=== PATIENT | female | born 1940 | race Caucasian/White ===

== ENCOUNTER 2019-02-09 07:13 | Inpatient (IN) ==
--- NOTE | 2019-01-18 15:32 | PAT Medication Instructions ---
Medication Instructions Date of Service January 18, 2019 Home Medications Metamucil 3 tbsp PO QAM acetaminophen [Tylenol Extra 1,000 mg PO BID PRN amlodipine 5 mg PO QAM aspirin [Aspirin Low Dose] 81 mg PO HS atenolol 50 mg PO HS atorvastatin 20 mg PO HS cetirizine [Zyrtec] 10 mg PO HS cholecalciferol (vitamin D3) 1,000 unit PO QAM coenzyme Q10 10 mg PO QAM esomeprazole magnesium [Nexium] 40 mg PO QAM fluticasone propionate 1 spray INTRANASAL BID hydroxychloroquine [Plaquenil] 400 mg PO QPM lactase [Lactaid] 3,000 unit PO DAILY PRN meloxicam 15 mg PO HS montelukast 10 mg PO QPM ranitidine HCl 150 mg PO HS telmisartan [Micardis] 80 mg PO QDL zolpidem [Ambien] 2.5 mg PO HS PRN [PreserVision AREDS-2]vit C,Y-Gx-wdayq-lutein-zeaxan 1 tab PO QAM ASK your surgeon for instructions meloxicam 15 mg PO HS ASK your prescriber and surgeon hydroxychloroquine [Plaquenil] 400 mg PO QPM STOP taking 2 weeks before surgery (or as soon as possible if surgery is within 2 weeks) coenzyme Q10 10 mg PO QAM [PreserVision AREDS-2]vit C,I-He-isuyx-lutein-zeaxan 1 tab PO QAM DO NOT take the morning of surgery Metamucil 3 tbsp PO QAM cholecalciferol (vitamin D3) 1,000 unit PO QAM lactase [Lactaid] 3,000 unit PO DAILY PRN telmisartan [Micardis] 80 mg PO QDL Take morning of surgery With a small sip of water, OTHERWISE NOTHING TO EAT OR DRINK AFTER MIDNIGHT: acetaminophen [Tylenol Extra 1,000 mg PO BID PRN (okay to take up to 4 hours prior to surgery if needed) amlodipine 5 mg PO QAM esomeprazole magnesium [Nexium] 40 mg PO QAM fluticasone propionate 1 spray INTRANASAL BID Take evening before surgery acetaminophen [Tylenol Extra 1,000 mg PO BID PRN (if needed) aspirin [Aspirin Low Dose] 81 mg PO HS atenolol 50 mg PO HS atorvastatin 20 mg PO HS cetirizine [Zyrtec] 10 mg PO HS fluticasone propionate 1 spray INTRANASAL BID lactase [Lactaid] 3,000 unit PO DAILY PRN (if needed) montelukast 10 mg PO QPM ranitidine HCl 150 mg PO HS zolpidem [Ambien] 2.5 mg PO HS PRN (if needed) Other Notes If you have any questions please call us at [phone] or [phone] or [phone] or [phone]
--- NOTE | 2019-01-19 11:46 | Anesthesiology Consultation ---
Date of Service January 19, 2019 Assessment & Plan (1) Encounter for pre-operative examination: - S/P right cataracts extraction with IOL= 01/03/19= MAC sedation at [facility] - PCP: 01/25/19: "no contraindications to surgery at this time." Chart Review Chart Review: Acceptable Risk for Surgery and Patient seen in Pre Admission Testing Teaching & Discussion Pre-Anesthesia Teaching/Discussion Notes: Instructed NPO after midnight before surgery,except medications with 15 cc of water. Medication instructions provided according to the PAT guidelines. History Surgery Operation Date: 02/09/19 07:15 Proposed Procedures p Right Reversed Total Shoulder Arthroplasty - Hemant Perez MD Height/Weight Height: 5 ft 2 in Weight: 75.6 kg Allergies Allergy/AdvReac Type Severity Reaction Status Date / Time adhesive Allergy Intermediate RASH Verified 01/13/19 12:11 clarithromycin Allergy Intermediate RASH Verified 01/13/19 12:11 morphine Allergy Mild ITCHINESS Verified 01/13/19 12:11 Medications Home Medications Medication Instructions Recorded Confirmed Last Taken Metamucil 3 tbsp PO QAM 12/13/18 01/13/19 01/02/19 10:00 acetaminophen [Tylenol Extra 1,000 mg PO BID PRN 12/13/18 01/13/19 01/03/19 05:45 Strength] amlodipine 5 mg PO QAM 12/13/18 01/13/19 01/03/19 05:45 aspirin [Aspirin Low Dose] 81 mg PO HS 12/13/18 01/13/19 01/02/19 10:45 atenolol 50 mg PO HS 12/13/18 01/13/19 01/02/19 10:45 atorvastatin 20 mg PO HS 12/13/18 01/13/19 01/02/19 10:45 cetirizine [Zyrtec] 10 mg PO HS 12/13/18 01/13/19 01/02/19 10:45 cholecalciferol (vitamin D3) 1,000 unit PO QAM 12/13/18 01/13/19 01/02/19 11:00 [Vitamin D3] coenzyme Q10 10 mg PO QAM 12/13/18 01/13/19 01/02/19 11:00 esomeprazole magnesium [Nexium] 40 mg PO QAM 12/13/18 01/13/19 01/03/19 fluticasone propionate 1 spray INTRANASAL BID 12/13/18 01/13/19 12/19/18 hydroxychloroquine [Plaquenil] 400 mg PO QPM 12/13/18 01/13/19 01/02/19 23:45 lactase [Lactaid] 3,000 unit PO DAILY PRN 12/13/18 01/13/19 01/02/19 meloxicam 15 mg PO HS 12/13/18 01/13/19 01/03/19 montelukast 10 mg PO QPM 12/13/18 01/13/19 01/03/19 ranitidine HCl 150 mg PO HS 12/13/18 01/13/19 01/02/19 22:45 telmisartan [Micardis] 80 mg PO QDL 12/13/18 01/13/19 01/02/19 11:00 zolpidem [Ambien] 2.5 mg PO HS PRN 12/13/18 01/13/19 01/02/19 22:45 vit C,B-Og-sksyf-lutein-zeaxan 1 tab PO QAM 01/13/19 01/13/19 Unknown [PreserVision AREDS-2] Past Medical History Medical History Anemia CHRONIC Cancer BLADDER, RIGHT BREAST= NO CHEMO OR RADIATION; S/P RIGHT MASTECTOMY GERD (gastroesophageal reflux disease) History of diverticulitis S/P BOWEL RESECTION (2014) Hyperlipidemia Hypertension Osteoarthritis Rheumatoid arthritis Past Surgical History Surgical History History of appendectomy History of bilateral tubal ligation History of biopsy of bladder History of bowel resection R/T DIVERTICULAR DISEASE History of cataract extraction with lens replacement History of colonoscopy History of cystoscopy History of esophagogastroduodenoscopy (EGD) History of hysterectomy MATT BSO History of mastectomy RIGHT BREAST History of open reduction and internal fixation (ORIF) procedure RIGHT ANKLE History of tonsillectomy History of total knee replacement LEFT KNEE Hx of bladder repair surgery Past Anesthesia History No Hx of Anesthesia Complications and No Family Hx of Anesthesia Complications History of PONV No Motion Sickness Screening History of Motion Sickness: No Social History Smoking Status: Former smoker Do You Dip or Chew Tobacco: No Smoking End Date: QUIT Hx Alcohol Use: Yes Alcohol type: wine alcohol intake frequency: holidays/special occasions only Hx Substance Use: No substance use type: does not use Exercise / Class Metabolic Activity II 4-5 Yardwork/Stairs/Walk up hill Review of Systems Patient denies chest pain, shortness of breath, dyspnea on exertion, cough, wheezing, palpitations. Physical Exam Vital Signs VITALS BP 159/73 P 72 TEMP 97.8 SP02 98%Ra RESP 18 PHYSICAL Full neck and c-spine range of motion. Full TMJ range of motion. TMD 3 finger breaths Mallampati Score 3 Dentition: intact, several caps "all over" Lungs: clear throughout to auscultation Cardiac: regular rate and rhythm, no murmurs noted Spine: normal Carotid arteries: negative bruit Extremities: no edema Testing Electrocardiogram Date: 01/19/19 SR with first degree AVB at 71bpm. Septal infarct (noted on 06/11/2009 EKG at [facility]) Chest X-Ray Date: 01/19/19 Findings: + NAD Cervical Spine Date: 01/28/18 Considerable degenerative change mid to lower cervical region. No evidence for positional subluxation. The C1-C2 complex is intact on a positional basis. Laboratory Results 01/19/19 12:08 01/19/19 12:08 Blood Type A Positive 01/19/19 12:08 Antibody Screen NEGATIVE 01/19/19 12:08 PT 10.3 Seconds (9.0-12.0) 01/19/19 12:08 INR 1.0 (0.9-1.1) 01/19/19 12:08 APTT 28.8 Seconds (21.0-31.0) 01/19/19 12:08 Hemoglobin A1c 5.7 % (4.5-5.6) H 01/19/19 12:08 Urine Color Yellow 01/19/19 12:08 Urine Appearance Clear (Clear) 01/19/19 12:08 Urine pH 6.0 (4.5-7.5) 01/19/19 12:08 Ur Specific [place] 1.007 (1.000-1.030) 01/19/19 12:08 Urine Protein Negative (Negative) 01/19/19 12:08 Urine Glucose (UA) Negative (Negative) 01/19/19 12:08 Urine Ketones Negative (Negative) 01/19/19 12:08 Urine Nitrite Negative (Negative) 01/19/19 12:08 Ur Leukocyte Esterase Negative (Negative) 01/19/19 12:08
[2019-01-19 12:41] LABS: Basophils # (auto) 0.01 K/uL (0-0.2); Basophils % (auto) 0.1 %; Eosinophils # (auto) 0.15 K/uL (0-0.5); Eosinophils % (auto) 1.5 %; Hematocrit (blood only) 34.8 % (37-47); Hemoglobin 11.5 g/dL (12.0-16.0); Immature Granulocytes # (auto) 0.03 K/uL (0.00-0.02); Immature Granulocytes % (auto) 0.3 %; Lymphocytes # (auto) 1.57 K/uL (1.2-3.4); Mean Corpuscular Volume 87.9 fL (80-100); Monocytes # (auto) 1.02 K/uL (0.11-0.59); Monocytes % (auto) 10.4 %; Neutrophils # (auto) 7.03 K/uL (1.4-6.5); Neutrophils % (auto) 71.7 %; Platelet Count 341 K/uL (130-400); RDW Coefficient of Variation 13.5 % (11.5-14.5); RDW Standard Deviation 43.6 fL (36.4-46.3); Red Blood Count 3.96 M/uL (4.2-5.4); White Blood Count 9.81 K/uL (4.8-10.8)
--- NOTE | 2019-01-19 12:47 | XRay Report ---
XR chest Pre-admission PA/Lat CLINICAL HISTORY: Preoperative evaluation. COMPARISON STUDY: Chest radiograph January 28, 2018. FINDINGS: Lung volumes are normal. There is no pneumothorax or pleural effusion. There is no consolid ation or evidence for pulmonary edema. Cardiomediastinal silhouette is unremarkable. IMPRESSION: No acute cardiopulmonary findings. Electronically signed by: Jose Angel Melgoza M.D. 01/19/2019 12:46 PM
[2019-01-19 12:48] LABS: Appearance Urine Clear (Clear); Bilirubin Urine Negative (Negative); Blood Urine Negative (Negative); Color Urine Yellow; Glucose Urine UA Negative (Negative); Ketones Urine Negative (Negative); Leukocyte Esterase Urine Negative (Negative); Nitrite Urine Negative (Negative); Protein Urine Negative (Negative); Specific Gravity Urine 1.007 (1.000-1.030); Urobilinogen Urine Negative (Negative)
[2019-01-19 12:49] LABS: Albumin Level 3.6 gm/dl (3.4-5.0); BUN Creatinine Ratio 21.5 (10-20); Calcium 9.5 mg/dl (8.5-10.1); Creatinine Clr Calc Pharmacy 64.2 ml/min; Est GFR (African American) 95.9; Est GFR (Non-African American) 82.7; Potassium 4.1 mmol/L (3.5-5.1)
[2019-01-19 13:03] LABS: Partial Thromboplastin Ratio 1.1; Partial Thromboplastin Time 28.8 Seconds (21.0-31.0); Prothrombin Time 10.3 Seconds (9.0-12.0)
[2019-01-19 13:27] LABS: Estimated Average Glucose 117 mg/dl; Hemoglobin A1C 5.7 % (4.5-5.6)
--- NOTE | 2019-02-08 20:42 | History and Physical Report ---
DATE OF ADMISSION: 02/09/2019 CHIEF COMPLAINT: Chronic right shoulder pain and weakness. HISTORY OF PRESENT ILLNESS: This is a 78-year-old female patient of Dr. Perez'terri complaining of chronic right shoulder pain and weakness, longstanding, now progressively getting worse. The patient has failed conservative treatment. She has been diagnosed with insufficient rotator cuff and osteoarthritis of the right shoulder and she wishes to proceed with a right reversed total shoulder arthroplasty. PAST MEDICAL HISTORY: Heart murmur, hypertension, hypercholesterolemia, rheumatoid arthritis, osteoarthritis, acid reflux, breast cancer, bladder cancer. SOCIAL HISTORY: Nonsmoker, occasional drinker. PAST SURGICAL HISTORY: Hysterectomy, colon surgery, ovary removal, bilateral knee arthroscopies, left total knee replacement, mastectomy, bladder surgery, appendectomy, cataract surgery. FAMILY HISTORY: Noncontributory. REVIEW OF SYSTEMS: Chronic right shoulder pain and weakness. Otherwise, denies any shortness of breath, chest pain, nausea, vomiting or any other joint complaints. MEDICATIONS: 1. Micardis 80 mg daily. 2. Aspirin 81 mg daily. 3. Nasonex 50 mcg actuation spray 2 sprays in each nostril daily. 4. Citracal plus D daily. 5. Singulair 10 mg daily. 6. Nexium 40 mg daily. 7. Fiber daily. 8. Lipitor 20 mg daily. 9. Probiotic 10 billion cell capsule daily. 10. Zyrtec 10 mg daily. 11. Vitamin D3 1000 units daily. 12. Hydroxychloroquine 200 mg 2 tablets daily. 13. CoQ10 30 mg daily. 14. Celebrex 200 mg daily. 15. Amlodipine 5 mg daily. 16. PreserVision 2 tablets 2 times daily. 17. Meloxicam 7.5 mg daily. 18. Zolpidem 5 mg daily. 19. Tylenol as needed. 20. Atenolol 50 mg daily. ALLERGIES: BIAXIN, MORPHINE, ADHESIVE, CLARITHROMYCIN. PHYSICAL EXAMINATION: GENERAL: Well-developed, well-nourished 78-year-old female in no acute distress. She is alert and oriented x3 and pleasant. HEENT: Normocephalic, atraumatic. Extraocular motions are intact. Pupils are equal and reactive to light. HEART: Regular rate and rhythm, no murmurs. LUNGS: Clear. ABDOMEN: Soft and nontender. Bowel sounds present. EXTREMITIES: Right shoulder active range of motion 0-90, passively 0-140. She has painful crepitation with active and passive range of motion. She has 2/5 strength globally. NEUROLOGIC: Neurovascularly, she is intact in her right upper extremity. DIAGNOSES: Right shoulder rotator cuff insufficiency and osteoarthritis with a history of heart murmur, hypertension, hypercholesterolemia, rheumatoid arthritis, osteoarthritis, acid reflux, breast cancer, bladder cancer. PLAN: The patient was advised of her diagnosis. Indications, risks, benefits, postop course have all been reviewed. Necessary consent forms and preoperative testing and clearances will be obtained.
[~2019-02-09 07:13] MED LIST: ACETAMINOPHEN 500 MG TAB PO SCH; CEFAZOLIN 1000MG 1,000 MG/7.5 ML SYR IV SCH; CeleBREX 200 MG CAP PO SCH; DEXAMETHASONE SOD INJ 4 MG/ML VIAL ONE; FAMOTIDINE 20 MG TAB PO SCH; GABAPENTIN 300 MG PO SCH; GLYCOPYRROLATE 0.2 MG/ML VIAL ONE; LARYING-O-JET KIT (LTA) ONE; LIDOCAINE HCL 2% 2 ML VIAL/AMP(20MG/ML) INFIL ONE; LR 15ML/HR IV SCH; METOCLOPRAMIDE HCL 10 MG TABLET PO SCH; MIDAZOLAM HCL 1 MG/ML 2ML VIAL ONE; NEOSTIGMINE METHYLSULFATE 5 MG/5 ML SYR ONE; ONDANSETRON INJ 2 MG/ML 2 ML VIAL ONE; PHENYLEPHRINE 100MCG/ML 5ML SYR ONE; PROPOFOL IV EMULSION 10 MG/ML 20 ML VIAL IV ONE; ROCURONIUM BROMIDE 10 MG/ML 5 ML VIAL ONE; ROPIVACAINE 0.5% 5 MG/ML 30 ML VIAL ONE; dexAMETHasone 4 MG TAB PO SCH; ePHEDrine sulfate 50 MG/ML SYR ONE; fentaNYL citrate 100 MCG/2 ML VIAL ONE
--- OUTSIDE RECORDS SUMMARY | 2019-02-09 07:17 | External Medical Summary | Continuity of Care Document ---
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) Asymptomatic Postmenopausal Status (V49.81) Urinary symptom or sign (788.99) (R39.9) Breast cancer (174.9) (C50.919) Ovarian cyst (620.2) (N83.20) Encounter for routine gynecological exam ination with Papanicolaou smear of cervix (V72.31) (Z01.419) Dysuria (788.1) (R30.0) Vulvitis (616.10) (N76.2) Allergies and Adverse Reactions Adhesive Tape TAPE (Allergy) Biaxin TABS (Allergy) Morphine Derivatives (Allergy) Medications Atenolol 100 MG Oral Tablet Refills: 0 Singulair 10 MG Oral Tablet Refills: 0 Lipitor 10 MG Oral Tablet Refills: 0 Aspirin EC 81 MG Oral Tablet Delayed Release Refills: 0 NexIUM 10 MG Oral Packet Refills: 0 Citracal + D 250-200 MG-UNIT TABS Refills: 0 Fiber CAPS Refills: 0 Vitamin D3 CAPS Refills: 0 Nasonex SUSP Refills: 0 Mobic TABS Refills: 0 amLODIPine Besylate TABS Refills: 0 Zyrtec TABS Refills: 0 PreserVision AREDS TABS Refills: 0 Probiotic CAPS Refills: 0 Micardis HCT 80-25 MG Oral Tablet Refills: 0 Ambien 5 MG Oral Tablet; TAKE 0.5 TABLET Daily Refills: 0 Plaquenil TABS Refills: 0 Procedures History of Tubal Ligation Status: Comple antoine History of Hysterectomy Status: Complete d History of Tonsillectomy Status: Complet ed History of Appendectomy Status: Complete d History of Simple Mastectomy Right Breast Status: Completed History of Laparoscopy (Diagnostic) Gynecologic With Biopsy Status: Completed History of Diagnostic Cystoscopy Status: Completed History of Upper Gastrointestinal Endoscopy (Therapeutic) Status: Completed History of Partial Colectomy - Sigmoid S tatus: Completed History of Salpingo-oophorectomy Bilateral Status: Completed Immunizations Immunizations not documented Family History Unknown Family Member Family history of Diabetes Mellitus (V18.0) Status: Active Comments: Family History Family history of Hypertension (V17.49) Status: Active Comments: Family History Family history of Hyperlipoproteinemia Status: Active C omments: Family History Family history of Osteoporosis (V17.81) Status: Active Comments: Family History Family history of Breast Cancer (V16.3) Status: Active Comments: Family History Social History - Smoking Status Unknown if ever smoked Former smoker Plan of Treatment Planned Encounters Appointment; Moses Blanco M.D. Start: 12-Dec-2019 11:20 Request Planned Observations Planned Goals not documented Results No Known Results Results not documented Encounters Appointment; Moses Blanco M.D. 07-Dec-2018 11:20 Encounter Diagnosis: Problem not documented Appointment; Urology, Room 7 07-Dec-2018 11:00 Encounter Diagnosis: Problem not documented Appointment; Moses Blanco M.D. 18-Jan-2018 11:20 Encounter Diagnosis: Problem not documented Appointment; Urology, Room 7 18-Jan-2018 11:15 Encounter Diagnosis: Problem not documented Appointment; Moses Blanco M.D. 03-Aug-2017 11:10 Encounter Diagnosis: Problem not documented Appointment; Urology, Room 7 03-Aug-2017 11:00 Encounter Diagnosis: Problem not documented Appointment; Moses Blanco M.D. 12-Dec-2019 11:20 Encounter Diagnosis: Problem not documented
--- NOTE | 2019-02-09 07:42 | History & Physical Bridge Note ---
Date of Service February 09, 2019 History & Physical Bridge Note I have examined the patient, reviewed the History & Physical and in the interval since the performance of the History & Physical I have noted the following changes of clinical significance: no changes noted
[2019-02-09] MEDS ORDERED: BACITRACIN INJ 50,000 UNIT VIAL ONE (08:24)
[2019-02-09] MEDS ORDERED: CEFAZOLIN 1000MG 1,000 MG/7.5 ML SYR IV SCH (10:00)
[2019-02-09] MEDS ORDERED: fentaNYL citrate 100 MCG/2 ML VIAL IV PRN (11:03)
[2019-02-09] MEDS ORDERED: ATROPINE SULFATE 0.1 MG/ML 10ML SYR IV PRN (11:03)
[2019-02-09] MEDS ORDERED: ePHEDrine sulfate 50 MG/ML AMP IV PRN (11:03)
[2019-02-09] MEDS ORDERED: ONDANSETRON INJ 2 MG/ML 2 ML VIAL IV PRN ×2 (11:03→13:33)
[2019-02-09] MEDS ORDERED: ROCURONIUM BROMIDE 10 MG/ML 5 ML VIAL ONE ×3 (11:43)
--- NOTE | 2019-02-09 12:21 | Post Operative Brief Note ---
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 Procedure Operation Date: 02/09/19 09:45 Actual Procedures p Right Reversed Total Shoulder Arthroplasty Bicep Tendonesis, Partial Synovectomy, Debridement doing rheumatoid bone cyst (Right) with humeral head autograft- Hemant Perez MD Surgeon Hemant Perez MD Manager [employer] RENAE Estimated Blood Loss 200 Findings Consistent with Post-Op Diagnosis Specimens Humeral head and capsular and synovial tissue Drains Hemovac Drain Anesthesia Type General Regional Complications none Disposition Accompanied Patient To Recovery: No Disposition: Recovery Room Overlapping Procedure I was present for: the critical portions of procedure.
--- NOTE | 2019-02-09 13:30 | XRay Report ---
XR shoulder RT min 2V routine CLINICAL HISTORY: Post shoulder surgery COMPARISON: None. DISCUSSION: There are postsurgical changes of a reverse total right shoulder arthroplasty. There is n o dislocation. There are overlying skin romaine. There is aortic the soft tissues consistent with rec ent surgery. Overlying surgical drains are evident. IMPRESSION: Postsurgical changes of a reverse total right shoulder arthroplasty. No evidence of dislo cation Electronically signed by: Desmond Lake M.D. 02/09/2019 1:28 PM
[2019-02-09] MEDS ORDERED: MAGNESIUM HYDROXIDE SUSP 30 ML UDC PO PRN (13:33)
[2019-02-09] MEDS ORDERED: ACETAMINOPHEN 500 MG TAB PO PRN (13:33)
[2019-02-09] MEDS ORDERED: LACTASE 3000 UNIT TAB PO PRN (13:33)
[2019-02-09] MEDS ORDERED: BISACODYL 10 MG SUPP PR PRN (13:33)
[2019-02-09] MEDS ORDERED: TRAZODONE HCL 50 MG TAB PO PRN (13:33)
[2019-02-09] MEDS ORDERED: METOCLOPRAMIDE HCL INJ 5 MG/ML 2 ML VIAL IV PRN (13:33)
[2019-02-09] MEDS ORDERED: NALOXONE HCL 0.4 MG/1 ML VIAL/CARP IV PRN (13:33)
--- NOTE | 2019-02-09 13:46 | Anesthesiology Progress Note ---
Date of Service February 09, 2019 Anesthesia Post Procedure Vital Signs Vital Signs: Temp Pulse Resp BP Pulse Ox 02/09/19 13:10 97.7 F 83 16 138/60 99 02/09/19 13:00 86 14 140/59 L 100 02/09/19 12:50 82 12 141/66 H 100 02/09/19 12:40 86 18 150/65 H 100 02/09/19 12:32 97.2 F L 89 13 149/65 H 99 Pain Intensity Right Shoulder: Pain Intensity: 2 Transfer of Care Handoff Completed per policy Notes Mental Status: alert / awake / arousable and participated in evaluation Patient Amnestic to Procedure: Yes Nausea / Vomiting: adequately controlled Pain: adequately controlled Airway Patency, RR, SpO2: stable & adequate BP & HR: stable & adequate Hydration State: stable & adequate Anesthetic Complications: no major complications apparent and Pt Satisfied with anesthetic care
[2019-02-09] MEDS: SODIUM CHLORIDE 0.9% 1000ML 1,000 ML IV SCH (14:20)
[2019-02-09] MEDS: ACETAMINOPHEN 500 MG TAB PO SCH ×2 (14:20→21:09)
--- NOTE | 2019-02-09 14:23 | Consultation ---
Date of Consultation February 09, 2019 Assessment & Plan (1) Status post reverse total replacement of right shoulder: 78 y/o F Hx HTN, HLD, RA, GERD. Presented for elective R total shoulder replacement. The pt is recovering well in the post-op period. She denies CP, SOB, nausea, vomiting, fevers or excessive pain at the surgical site. 1) Post-op - no acute complications and pt is asymptomatic. tolerating PO and does not have any pain. Recommend early mobility. 2) HTN - cont Norvasc, Atenolol post-op - would hold ARB pending AM labs and eval. 3) HLD - cont Atorvastatin 4) RA - takes Plaquenil only - can resume in a few days 5) GERD - cont PPi, Ranitidine Total time for this consult including review of labs, meds, records - review of ortho notes - discussion with pt - 32 min Present on Admission?: Yes History of Present Illness Requesting Physician: Ana Reason for Consultation: Post - op - R total [facility] Attending Physician: Hemant Perez MD History of Present Illness 78 y/o F Hx HTN, HLD, RA, GERD. Presented for elective R total shoulder replacement. The pt is recovering well in the post-op period. She denies CP, SOB, nausea, vomiting, fevers or excessive pain at the surgical site. PMH: 1) HTN 2) HLD 3) RA 4) Breast CA 5) Bladder CA 6) GERD Surgical: 1) Hysterectomy 2) Oophorectomy 3) L TKR 4) Mastectomy - 2009 5) Bladder surgery - likely TURB - 2009 6) Appendectomy Social: Does not drink - distant smoking history Family: Noncontributory Allergies Allergy/AdvReac Type Severity Reaction Status Date / Time adhesive Allergy Intermediate RASH Verified 02/09/19 07:48 clarithromycin Allergy Intermediate RASH Verified 02/09/19 07:48 morphine Allergy Mild ITCHINESS Verified 02/09/19 07:48 Home Medications Home Medications Medication Instructions Recorded Confirmed Type Metamucil 3 tbsp PO QAM 12/13/18 02/09/19 History acetaminophen [Tylenol Extra 1,000 mg PO BID PRN 12/13/18 02/09/19 History Strength] amlodipine 5 mg PO QAM 12/13/18 02/09/19 History aspirin [Aspirin Low Dose] 81 mg PO HS 12/13/18 02/09/19 History atenolol 50 mg PO HS 12/13/18 02/09/19 History atorvastatin 20 mg PO HS 12/13/18 02/09/19 History cetirizine [Zyrtec] 10 mg PO HS 12/13/18 02/09/19 History cholecalciferol (vitamin D3) 1,000 unit PO QAM 12/13/18 02/09/19 History [Vitamin D3] coenzyme Q10 10 mg PO QAM 12/13/18 02/09/19 History esomeprazole magnesium [Nexium] 40 mg PO QAM 12/13/18 02/09/19 History fluticasone propionate 1 spray INTRANASAL BID 12/13/18 02/09/19 History hydroxychloroquine [Plaquenil] 400 mg PO QPM 12/13/18 02/09/19 History lactase [Lactaid] 3,000 unit PO DAILY PRN 12/13/18 02/09/19 History meloxicam 15 mg PO HS 12/13/18 02/09/19 History montelukast 10 mg PO QPM 12/13/18 02/09/19 History ranitidine HCl 150 mg PO HS 12/13/18 02/09/19 History telmisartan [Micardis] 80 mg PO QDL 12/13/18 02/09/19 History vit C,T-Xh-anlfd-lutein-zeaxan 1 tab PO QAM 01/13/19 02/09/19 History [PreserVision AREDS-2] Align 1 tab PO HS 02/01/19 02/09/19 History tramadol 1 tab PO DAILY PRN 02/01/19 02/09/19 History trazodone 1 tab PO HS PRN 02/01/19 02/09/19 History Patient History Social History Preferred Language: Sinhala Communication Ability: Effective Beliefs That Will Affect Care: None Current Living Situation: Spouse Feels Safe at Home: Yes Safety Concerns: Feels Safe At This Time Smoking Status: Former smoker Do You Dip or Chew Tobacco: No Smoking End Date: QUIT Second Hand Exposure: No Hx Alcohol Use: Yes Alcohol type: wine Hx Substance Use: No Review of Systems Review of Systems: Gen: Denies fevers, night sweats, rigors, fatigue, malaise, weight loss/gain ENT: Denies congestion, throat pain, hearing loss Eyes: Denies acute visual changes CV: Denies CP, palpitations Pulmonary: Denies SOB, cough, wheezing GI: Denies N/V, diarrhea, constipation Neuro: Denies acute or unilateral weakness, acute gait impairment, headache or acute visual changes Musculoskeletal: She does not have any pain at the time of initial evaluation Endocrine: Denies polydipsia, polyuria Skin: Denies acute rashes or ulcers Physical Exam Physical Exam: General: AAO x 3, no distress ENT: No erythema or exudates, no thrush Eyes: KAJAL, EOMI Head and neck: Normocephalic, atraumatic, No JVD, neck is supple. Chest/heart: Nontender, S1,2, RRR, no murmurs, no gallops Lungs: CTAB, no wheezing or crackles Abdomen: Nontender, nondistended, BS+ Neuro: AAO x 3, speech is clear, no unilateral weakness or loss of sensation, coordination intact Musculoskeletal: No joint inflammation, muscle tenderness, FROM Skin: No acute rashes or ulcers Extremities: No clubbing, cyanosis, edema - pulses + in upper ext Results & Data Vital Signs (Past 12 Hours) Vital Signs Temp Pulse Pulse Resp BP Pulse Ox 02/09/19 13:58 78 17 115/68 91 02/09/19 13:47 97.9 F 87 16 123/69 95 02/09/19 13:10 97.7 F 83 16 138/60 99 02/09/19 13:00 86 14 140/59 L 100 02/09/19 12:50 82 12 141/66 H 100 02/09/19 12:40 86 18 150/65 H 100 02/09/19 12:32 97.2 F L 89 13 149/65 H 99
--- NOTE | 2019-02-09 15:58 | Operative Report ---
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 Patient tafp-ko-jsho in the glenohumeral joint but MRI demonstrates significant rotator cuff tendinopathy thinning and at least high-grade partial tearing of the rotator cuff. She has extensive rheumatoid arthritis with large erosions and humeral head. Also has erosions in the glenoid. This is all consistent with chronic rheumatoid arthritis. There is also biceps tenosynovitis. Description of Procedure The patient was taken to the operating room and anesthetized under regional block and general anesthetic. The patient was positioned on the operating table in a 30 beachchair position with a towel roll under the medial border of the right scapula. The arm was draped free to be able to manipulate the shoulder as needed. The right upper extremity was prepped and draped in usual sterile fashion. Exam demonstrated marked [id number] crepitation anterior subluxation of the humerus good passive range of motion to 160 degrees of forward elevation. An anterior deltopectoral approach was performed. A longitudinal incision was made in the deltopectoral interval. The skin was incised sharply. Subcutaneous flaps were elevated off the fascia. The cephalic vein was dissected out and retracted lateral with the deltoid. The clavipectoral fascia was divided at the lateral margin of the conjoined tendon and extended up to the CA ligament. The following findings were noted: There is significant thinning of the upper subscapularis tendon with at least high-grade partial tearing. There is fluid collection coming out of the rotator interval with bursitis over the rotator cuff. Supraspinatus and infraspinatus were still intact. Biceps tendon had increased laxity had an opaque appearance to it consistent with chronic tendinopathy. There was synovitis around the biceps. The upper centimeter of the pectoralis was released for inferior exposure. . the biceps tendon was tenodesed to the pectoralis tendon with #2 FiberWire. The proximal biceps was resected. The subscapularis tendon was taken down off the lesser tuberosity using a subperiosteal dissection. A #1 Vicryl traction suture was placed into the free end of the subscapularis tendon and capsule. The subscapular muscle fibers were split longitudinally at the level of the circumflex vessels. The circumflex vessels were identified and tied off with silk ties and divided laterally. A Kitner elevator was used to free up the inferior fibers of the subscapularis off of the capsule. The axillary nerve was identified with a tug test and protected with a blunt Consuelo retractor between the nerve and the capsule. The subscapularis tendon was then taken down off of the lesser tuberosity subperiosteally and subperiosteal dissection was performed along the neck of the humerus as the arm is gradually actually rotated exposing the humeral head. Retractors were readjusted and the small inferior osteophytes were all resected using a ronguer. A Mullen elevator was used to assist in releasing the capsule of the neck of the humerus. The capsule was divided with Esparza scissors down to the glenoid released off the anterior glenoid and the rotator interval was released to meet the capsular release and a 360 release of the subscapularis was accomplished. A Fukuda retractor was placed into the joint retracting the humeral head posterior. Glenoid findings demonstrated mainly concentric wear of the glenoid but there was a rounded off appearance of the anterior glenoid with eburnated bone anteriorly concerning for anterior subluxation due to subscapularis weakness and vspj-[id number] clearly in the anterior aspect of the joint. There are more cystic erosions in the posterior joint globally. There was significant synovitis with rheumatoid type synovium tissue throughout the glenohumeral joint and there were large erosions into the humeral head and central erosions in the glenoid. The humeral head erosions were peripheral and periarticular consistent with rheumatoid arthritis. The labrum was resected. I did not visualize any intra-articular biceps which apparently was scarred down in the upper bicipital groove. An anterior-inferior and posterior inferior capsular release were performed with electrocautery and a Mullen elevator on bone with the axillary nerve protected inferiorly by the retractor. A partial synovectomy was performed removing the large fronds of inflamed synovial tissue staying intracapsular with the synovial resection. Attention was then taken to the humeral preparation. The cutting guide was placed into the humeral head. It was positioned at 20 of retroversion. Oscillating saw was used to resect the humeral head giving the cut above the level of the posterior rotator cuff insertion site. The humerus was then prepared for the stem. The large cysts were curetted out removing all the rheumatoid material out of the cysts. I used the ascend flex stem from [employer]. The sizing broaches were used followed by trial broaches up to a size 4B long which had the appropriate fit and fill. The appropriate sized cut protector was placed. The humerus was then retracted posterior to the glenoid. The glenoid was sized for a 25 baseplate. The guide for the baseplate was positioned in a 10 inferior tilt and the central drill hole was made. The reamer for the 25 baseplate was used. Multiple cysts were curetted out. The central drill was widened for the peg. Some cyst material was removed from the central peg area and more posteriorly along the baseplate reamed area. After copious irrigation of the cystic areas of bone grafted with humeral head autograft. the 25 aequalis Tornier baseplate was impacted into position. The base plate was transfixed with superior and inferior locking screws and anterior and posterior compression screws with stable fixation. The fan reamer was used for the 36 millimeter glenoid sphere. After irrigation the 36 standard glenoid sphere was impacted onto the baseplate and the screw was tightened. Attention was taken back to the humerus. The cut protector was removed and the +0 high offset humeral tray trial was assembled to the trial stem rotated appropriately to get bony coverage and then screwed in position. A trial reduction was performed. A +6 trial insert demonstrated good stability and no shuck. The trials were removed. 3 drill holes are made into the harder bone in the bicipital groove area and 3 #5 FiberWire sutures were placed transosseously. The canal was irrigated with antibiotic solution with bacitracin. The final component was assembled. The final component was 4B long ascend flex stem +0 high offset humeral tray 36+6 humeral polyethylene insert. This was then impacted into the humerus with a tight press-fit. It was reduced to the glenoid sphere. Stability was verified. Subscapularis was repaired with the #5 FiberWire sutures using Jamal-Kishan suture technique. Lateral row soft tissue repair was performed with #2 FiberWire oitibg-zg-paddl sutures. The pectoralis was repaired with #2 Fi berWire henvsp-wr-uybou sutures reinforcing the biceps tendon tenodesis. The arm was taken through a range of motion which demonstrated 160 degrees forward elevation 100 degrees abduction 70 degrees external rotation. The implant was stable through the range of motion tested. The wound was copiously irrigated. 2 Hemovac drains were placed. The deltopectoral interval was closed with [id number]-[id number] #1 Vicryl sutures. The subcutaneous tissues were closed with 2- 0 Vicryl sutures. The skin was closed with romaine. Sterile dressings were applied and a shoulder immobilizer. Laurent RENAE my physician data entry assistant assisted in the procedure to the entire procedure including patient positioning arm positioning prepping and draping soft tissue retraction instrument management suture management and performed the subcutaneous and skin closure and will participate in the postoperative care of the patient. I attest to the content of the Intraoperative Record and any orders documented therein. Any exceptions are noted below.
[2019-02-09] MEDS ORDERED: COUGH DROP (SUGAR FREE) LOZ 24 LOZ/1 BOX BUCCAL PRN (16:22)
[2019-02-09] MEDS: CEFAZOLIN 1000MG 1,000 MG/7.5 ML SYR IV SCH (19:02)
[2019-02-09] MEDS ORDERED: CHLORASEPTIC 1.4% SOLN 180 ML BTL MT PRN (19:57)
[2019-02-09] MEDS: FLUTICASONE PROPIONATE NA SPR 16 GM BTL SCH (20:18)
[2019-02-09] MEDS: LACTOBACILLUS ACIDOPHILUS (FLORANEX) TAB PO SCH (20:18)
[2019-02-09] MEDS: ASPIRIN 81 MG ECTAB PO SCH (20:18)
[2019-02-09] MEDS: ATORVASTATIN 20 MG TAB PO SCH (20:18)
[2019-02-09] MEDS: DOCUSATE SODIUM 100 MG CAP PO SCH (20:18)
[2019-02-09] MEDS: MONTELUKAST SODIUM 10 MG TABLET PO SCH (20:25)
[2019-02-09] MEDS: SENNA 8.6 MG TAB PO SCH (20:25)
[2019-02-09] MEDS: ATENOLOL 50 MG TABLET PO SCH (20:25)
[2019-02-09] MEDS: HYDROXYCHLOROQUINE SULFATE 200 MG TAB PO SCH ×2 (20:25→20:40)
[2019-02-09] MEDS: CETIRIZINE HCL 10 MG TABLET PO SCH (20:26)
[2019-02-09] MEDS ORDERED: Nursing to Pharmacy Communication ONE (20:37)
[2019-02-10] MEDS: OXYCODONE HCL IR 5 MG TAB (IMMEDIATE RELEASE) PO PRN ×3 (00:55→10:31)
[2019-02-10] MEDS: CEFAZOLIN 1000MG 1,000 MG/7.5 ML SYR IV SCH (01:13)
[2019-02-10] MEDS: SODIUM CHLORIDE 0.9% 1000ML 1,000 ML IV SCH (01:25)
[2019-02-10] MEDS: HYDROmorphone INJ 0.5 MG/0.5 ML SYR IV PRN ×2 (02:02→11:42)
[2019-02-10] MEDS: ACETAMINOPHEN 500 MG TAB PO SCH ×4 (05:47→21:19)
[2019-02-10] MEDS ORDERED: LR 15ML/HR IV SCH (06:00)
[2019-02-10 06:45] LABS: Basophils # (auto) 0.01 K/uL (0-0.2); Basophils % (auto) 0.1 %; Hematocrit (blood only) 30.8 % (37-47); Hemoglobin 10.4 g/dL (12.0-16.0); Immature Granulocytes # (auto) 0.04 K/uL (0.00-0.02); Immature Granulocytes % (auto) 0.3 %; Lymphocytes # (auto) 1.31 K/uL (1.2-3.4); Mean Corpuscular Hgb Conc 33.8 g/dL (32-36); Mean Platelet Volume 10.4 fL (7.4-10.4); Monocytes # (auto) 1.43 K/uL (0.11-0.59); Monocytes % (auto) 9.8 %; Neutrophils # (auto) 11.76 K/uL (1.4-6.5); Neutrophils % (auto) 80.8 %; Platelet Count 294 K/uL (130-400); RDW Coefficient of Variation 13.9 % (11.5-14.5); RDW Standard Deviation 44.4 fL (36.4-46.3); Red Blood Count 3.54 M/uL (4.2-5.4); White Blood Count 14.55 K/uL (4.8-10.8)
[2019-02-10 07:22] LABS: BUN Creatinine Ratio 17.6 (10-20); Calcium 8.7 mg/dl (8.5-10.1); Est GFR (Non-African American) 85.4; Potassium 3.8 mmol/L (3.5-5.1)
[2019-02-10] MEDS: PSYLLIUM 58.6% POWDER PACKET PO SCH (08:34)
[2019-02-10] MEDS: CHOLECALCIFEROL 1,000 UNITS TAB PO SCH (08:36)
[2019-02-10] MEDS: DOCUSATE SODIUM 100 MG CAP PO SCH ×2 (08:36→20:25)
[2019-02-10] MEDS: AMLODIPINE BESYLATE 5 MG TAB PO SCH (08:36)
[2019-02-10] MEDS: CEROVITE ADV FORMULA TAB PO SCH (08:36)
[2019-02-10] MEDS: PANTOprazole 40 MG TAB PO SCH (08:36)
[2019-02-10] MEDS: FLUTICASONE PROPIONATE NA SPR 16 GM BTL SCH ×2 (08:36→20:24)
[2019-02-10] MEDS: MULTIVITAMIN TAB PO SCH (08:36)
[2019-02-10] MEDS ORDERED: POLYETHYLENE (MIRALAX) 17 GM PACK PO PRN (11:05)
[2019-02-10] MEDS: TELMISARTAN 40 MG TAB PO SCH (11:51)
--- NOTE | 2019-02-10 12:01 | Orthopedic Progress Note ---
Date of Service February 10, 2019 Assessment & Plan (1) Status post reverse total replacement of right shoulder: POD#1 Reverse TSA -Pain management -DVT prophylaxis-SCDs -PT/OT-elbow/wrist ROM only -D/C planning-patient plans to return home upon discharge AM labs-hemoglobin at 10.4 down from 11.5 on pre op labs. Subjective Patient resting in bed comfortably. She is POD#1. Having some pain issues today, improved with Dilaudid. Denies any other complaints. Review of Systems Review of Systems: All systems reviewed & are unremarkable except as noted in HPI & below Physical Exam Physical Exam: Right shoulder dressing is c/d/i, hemovac in place. Sensation and n/v status intact. Fingers mobile with good impregnator strength. Results & Data Vital Signs (Past 12 Hours) Vital Signs Temp Pulse Resp BP Pulse Ox 02/10/19 11:25 37.0 C 74 17 134/74 02/10/19 07:33 37.1 C 79 18 162/71 H 93 02/10/19 03:43 37.1 C 82 14 137/69 94
[2019-02-10] MEDS: TRAMADOL HCL 50 MG TABLET PO PRN ×2 (16:11→21:21)
[2019-02-10] MEDS ORDERED: HYDROXYCHLOROQUINE SULFATE 200 MG TAB PO SCH (16:30)
--- NOTE | 2019-02-10 16:31 | Hospitalist Progress Note ---
Date of Service February 10, 2019 Assessment & Plan (1) Status post reverse total replacement of right shoulder: 78 y/o F Hx HTN, HLD, RA, GERD. Admitted to Dr. Lind's service for elective R total shoulder replacement on february Post-op day 1, no acute complications and pt is asymptomatic. Pain fairly controlled, tolerating PO and does not have any pain. Recommend early mobility. As tolerated hypertension, HTN , cont Norvasc, Atenolol,t ARB post-op, hydralazin prn because of accelerated hypertension blood pressure was up to 164/72 Renal function was good Postop mild leukocytosis white count 14, will follow up, HLD - cont Atorvastatin RA - takes Plaquenil only - can resume in a few days GERD - cont PPi, Ranitidine Will continue follow-up, Subjective Doing well, right shoulder pain fairly controlled, no obvious complaint, report decreased appetite, no bowel movement yet, Review of Systems Review of Systems: All systems reviewed & are unremarkable except as noted in HPI & below Physical Exam Physical Exam: General: Pleasant, conversational, AAO x 3, no distress ENT: No erythema or exudates, no thrush Eyes: KAJAL, EOMI Head and neck: Normocephalic, atraumatic, No JVD, neck is supple. Chest/heart: Nontender, S1,2, RRR, no murmurs, no gallops Lungs: CTAB, no wheezing or crackles Abdomen: Nontender, nondistended, BS+ Neuro: AAO x 3, speech is clear, no unilateral weakness or loss of sensation, coordination intact Musculoskeletal: No joint inflammation, muscle tenderness, FROM Skin: No acute rashes or ulcers Extremities: No clubbing, cyanosis, edema - pulses + in upper ext Results & Data Vital Signs (Past 12 Hours) Vital Signs Temp Pulse Resp BP Pulse Ox 02/10/19 16:07 36.8 C 82 18 164/72 H 93 02/10/19 11:25 37.0 C 74 17 134/74 02/10/19 07:33 37.1 C 79 18 162/71 H 93
[2019-02-10] MEDS: MONTELUKAST SODIUM 10 MG TABLET PO SCH (20:25)
[2019-02-10] MEDS: LACTOBACILLUS ACIDOPHILUS (FLORANEX) TAB PO SCH (20:25)
[2019-02-10] MEDS: CETIRIZINE HCL 10 MG TABLET PO SCH (20:25)
[2019-02-10] MEDS: ATORVASTATIN 20 MG TAB PO SCH (20:25)
[2019-02-10] MEDS: ATENOLOL 50 MG TABLET PO SCH (20:25)
[2019-02-10] MEDS: SENNA 8.6 MG TAB PO SCH (20:25)
[2019-02-10] MEDS: ASPIRIN 81 MG ECTAB PO SCH (20:25)
[2019-02-11] MEDS: HYDROmorphone INJ 0.5 MG/0.5 ML SYR IV PRN (00:07)
[2019-02-11] MEDS: ACETAMINOPHEN 500 MG TAB PO SCH (05:23)
[2019-02-11] MEDS: TRAMADOL HCL 50 MG TABLET PO PRN ×2 (05:26→12:58)
[2019-02-11 06:09] LABS: Basophils # (auto) 0.02 K/uL (0-0.2); Basophils % (auto) 0.2 %; Eosinophils # (auto) 0.19 K/uL (0-0.5); Eosinophils % (auto) 1.6 %; Hematocrit (blood only) 29.6 % (37-47); Hemoglobin 9.7 g/dL (12.0-16.0); Immature Granulocytes # (auto) 0.03 K/uL (0.00-0.02); Immature Granulocytes % (auto) 0.3 %; Lymphocytes # (auto) 2.02 K/uL (1.2-3.4); Lymphocytes % (auto) 16.9 %; Mean Corpuscular Hgb Conc 32.8 g/dL (32-36); Mean Corpuscular Volume 88.6 fL (80-100); Mean Platelet Volume 9.9 fL (7.4-10.4); Monocytes # (auto) 1.38 K/uL (0.11-0.59); Monocytes % (auto) 11.6 %; Neutrophils % (auto) 69.4 %; Platelet Count 268 K/uL (130-400); RDW Coefficient of Variation 14.4 % (11.5-14.5); RDW Standard Deviation 46.7 fL (36.4-46.3); Red Blood Count 3.34 M/uL (4.2-5.4); White Blood Count 11.94 K/uL (4.8-10.8)
[2019-02-11 06:46] LABS: BUN Creatinine Ratio 22.4 (10-20); Calcium 8.8 mg/dl (8.5-10.1); Est GFR (Non-African American) 84.6; Potassium 3.8 mmol/L (3.5-5.1)
[2019-02-11 07:08] VITALS: BP 161/84; PULSE 70; TEMP 98.2; O2SAT 96
[2019-02-11] MEDS: DOCUSATE SODIUM 100 MG CAP PO SCH (08:22)
[2019-02-11] MEDS: AMLODIPINE BESYLATE 5 MG TAB PO SCH (08:22)
[2019-02-11] MEDS: PSYLLIUM 58.6% POWDER PACKET PO SCH (08:22)
[2019-02-11] MEDS: PANTOprazole 40 MG TAB PO SCH (08:22)
[2019-02-11] MEDS: CHOLECALCIFEROL 1,000 UNITS TAB PO SCH (08:22)
[2019-02-11] MEDS: MULTIVITAMIN TAB PO SCH (08:22)
[2019-02-11] MEDS: CEROVITE ADV FORMULA TAB PO SCH (08:22)
[2019-02-11] MEDS: FLUTICASONE PROPIONATE NA SPR 16 GM BTL SCH (08:22)
--- NOTE | 2019-02-11 08:25 | Orthopedic Progress Note ---
Date of Service February 11, 2019 Assessment & Plan (1) Status post reverse total replacement of right shoulder: POD#2Reverse TSA -Pain management -DVT prophylaxis-SCDs -PT/OT-elbow/wrist ROM only -D/C planning-patient plans to return home today. Subjective pod #2, Doing well, right shoulder pain fairly controlled, no obvious complaint, dENIES sob, cp, n/v. Physical Exam Physical Exam: Right shoulder dressings c/d/i, no drainage, fingers mobile, sling in tact, A&Ox3. Results & Data Vital Signs (Past 12 Hours) Vital Signs Temp Pulse Resp BP Pulse Ox 02/11/19 07:07 36.8 C 70 18 161/84 H 96 02/10/19 23:45 37.1 C 74 16 158/83 H 91
[2019-02-11] MEDS: TELMISARTAN 40 MG TAB PO SCH (11:12)
--- NOTE | 2019-02-11 16:51 | Hospitalist Progress Note ---
Date of Service February 11, 2019 Assessment & Plan (1) Status post reverse total replacement of right shoulder: 78 y/o F Hx HTN, HLD, RA, GERD. Admitted to Dr. Lind's service for elective Right total shoulder replacement on february [id number] Post-op day 2, no acute complications and pt is asymptomatic. Pain fairly controlled, tolerating PO and does not have any pain. planning to home Accelerated hypertension, HTN , cont Norvasc, Atenolol, ARB post-op, hydralazin prn because of accelerated hypertension blood pressure , Advised patient to follow-up with PCP of blood pressures, she agree Constipation while on narcotic pain med, I gave magnesium citrate 300 mL for constipation after arriving home, prescription was given Renal function was good HLD - cont Atorvastatin RA - takes Plaquenil only - can resume in a few days GERD - cont PPi, Ranitidine I told patient to follow-up with PCP for all other medical conditions Subjective Generally doing okay, however has no bowel movement for 3 days, Blood pressure mild elevation at 161/84 Review of Systems Review of Systems: All systems reviewed & are unremarkable except as noted in HPI & below Physical Exam Physical Exam: General: Pleasant, conversational, AAO x 3, no distress ENT: No erythema or exudates, no thrush Eyes: KAJAL, EOMI Head and neck: Normocephalic, atraumatic, No JVD, neck is supple. Chest/heart: Nontender, S1,2, RRR, no murmurs, no gallops Lungs: CTAB, no wheezing or crackles Abdomen: Nontender, nondistended, BS+ Neuro: AAO x 3, speech is clear, no unilateral weakness or loss of sensation, coordination intact Musculoskeletal: No joint inflammation, muscle tenderness, FROM Skin: No acute rashes or ulcers Extremities: No clubbing, cyanosis, edema - pulses + in upper ext Results & Data Vital Signs (Past 12 Hours) Vital Signs Temp Pulse Resp BP Pulse Ox 02/11/19 09:24 36.8 C 70 18 161/84 H 96 02/11/19 07:07 36.8 C 70 18 161/84 H 96 Laboratory Results - last 24 hr 02/11/19 02/11/19 05:51 05:51 WBC 11.94 H RBC 3.34 L Hgb 9.7 L Hct 29.6 L MCV 88.6 MCH 29.0 MCHC 32.8 RDW Std Deviation 46.7 H RDW Coeff of Aminata 14.4 Plt Count 268 MPV 9.9 Immature Gran % (Auto) 0.3 Neut % (Auto) 69.4 Lymph % (Auto) 16.9 [place] % (Auto) 11.6 Eos % (Auto) 1.6 Baso % (Auto) 0.2 Immature Gran # (Auto) 0.03 H Neut # (Auto) 8.30 H Lymph # (Auto) 2.02 [place] # (Auto) 1.38 H Eos # (Auto) 0.19 Baso # (Auto) 0.02 Sodium 134 L Potassium 3.8 Chloride 99 Carbon Dioxide 29 Anion Gap 6.0 BUN 16 Creatinine 0.69 Est Cr Clr Drug Dosing 66.0 Est GFR ( Amer) 98.0 Est GFR (Non-Af Amer) 84.6 BUN/Creatinine Ratio 22.4 H Glucose 93 Calcium 8.8
--- NOTE | 2019-02-22 00:37 | Discharge Summary ---
This is a 78-year-old female patient of Dr. Perez'terri complaining of chronic right shoulder pain and weakness, longstanding, progressively getting worse. The patient was diagnosed with rotator cuff arthropathy and elected to proceed with a reverse total shoulder arthroplasty. PAST MEDICAL HISTORY: Heart murmur, hypertension, hypercholesterolemia, rheumatoid arthritis, osteoarthritis, acid reflux, breast cancer and bladder cancer. 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 Postoperatively, she was followed closely with medical consultation, DVT prophylaxis in the form of SCDs, pain control and limited physical therapy. She did well postoperatively and was discharged home on postoperative day #2. PHYSICAL EXAMINATION: On discharge, right shoulder incision was clean, dry and intact. [place] are intact. Skin edges were approximated well. There was no redness or drainage. Her fingers were mobile. Her sling was intact. Neurologically and neurovascular she was intact in her right upper extremity. 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 PLAN: The patient was discharged home with home exercises only. She will continue her preadmission medications with the addition of pain medications. She will follow up as scheduled as an outpatient. VALERIY
== END 2019-02-11 13:12 | disposition home or self-care (01) | DRG 483 ==
LOC: ASU 07:13 → 3E 12:41

== ENCOUNTER 2021-04-30 12:01 | Inpatient (IN) ==
--- NOTE | 2021-04-01 16:46 | PAT Medication Instructions ---
Medication Instructions Date of Service April 01, 2021 Home Medications amlodipine 5 mg PO QAM atenolol 25 mg PO HS atorvastatin 20 mg PO HS cetirizine [Zyrtec] 10 mg PO HS cholecalciferol (vitamin D3) [Vitamin D3] 1,000 unit PO QAM coenzyme Q10 50 mg PO QAM esomeprazole magnesium [Nexium] 40 mg PO QAM hydroxychloroquine [Plaquenil] 400 mg PO QPM lactase [Lactaid] 3,000 unit PO DAILY PRN montelukast 10 mg PO HS telmisartan [Micardis] 80 mg PO QAM PreserVision AREDS-2 1 tab PO QAM [employer] Otc 1 tab PO HS acetaminophen [Tylenol Extra Strength] 500 mg PO BID [id number] 1 spray INTRANASAL QAM meloxicam 7.5 mg PO DAILY PRN ASK your surgeon for instructions meloxicam 7.5 mg PO DAILY PRN ASK your prescriber and surgeon hydroxychloroquine [Plaquenil] 400 mg PO QPM STOP taking 2 weeks before surgery (or as soon as possible if surgery is within 2 weeks) coenzyme Q10 50 mg PO QAM PreserVision AREDS-2 1 tab PO QAM DO NOT take the morning of surgery cholecalciferol (vitamin D3) [Vitamin D3] 1,000 unit PO QAM lactase [Lactaid] 3,000 unit PO DAILY PRN telmisartan [Micardis] 80 mg PO QAM Take morning of surgery With a small sip of water, OTHERWISE NOTHING TO EAT OR DRINK AFTER MIDNIGHT: amlodipine 5 mg PO QAM esomeprazole magnesium [Nexium] 40 mg PO QAMS acetaminophen [Tylenol Extra Strength] 500 mg PO BID (okay to take up to 4 hours prior to surgery if needed) [id number] 1 spray INTRANASAL QAM Take evening before surgery atenolol 25 mg PO HS atorvastatin 20 mg PO HS cetirizine [Zyrtec] 10 mg PO HS lactase [Lactaid] 3,000 unit PO DAILY PRN (if needed) montelukast 10 mg PO HS [employer] Otc 1 tab PO HS acetaminophen [Tylenol Extra Strength] 500 mg PO BID Other Notes If you have any questions please call us at [phone] or [phone] or [phone] or [phone]
--- NOTE | 2021-04-03 12:09 | Anesthesiology Consultation ---
Date of Service April 03, 2021 Assessment & Plan (1) Encounter for pre-operative examination: - COVID screening: Per assessment on 04/03: Travel screen negative, no known COVID-19 positive contacts or current COVID-19 related symptoms. Patient vaccinated. Surgeon arranging preop COVID testing. Awaiting results. 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 No issues with intubation noted for 2019 Right TSA. Patient declined c-spine x-ray at PAT visit. She states she would be agreeable DOS if anesthesiology wishes to have obtained. - Patient goes by "Rosa" Chart Review Chart Review: Acceptable Risk for Surgery (pending surgeon-ordered cardiology clearance) and Patient seen in Pre Admission Testing Teaching & Discussion Pre-Anesthesia Teaching/Discussion Notes: Instructed NPO after midnight before surgery,except medications with 15 cc of water. Medication instructions provided according to the [facility] guidelines. History Surgery Operation Date: 04/30/21 13:00 Proposed Procedures p Left Reverse Total Shoulder Arthroplasty - Hemant Perez MD Height/Weight Height: 5 ft 2 in Weight: 73.9 kg Allergies Allergy/AdvReac Type Severity Reaction Status Date / Time adhesive Allergy Intermediate Rash Verified 04/03/21 12:05 clarithromycin Allergy Intermediate Rash Verified 04/03/21 12:05 morphine Allergy Mild Itchiness Verified 04/03/21 12:05 Medications Home Medications Medication Instructions Recorded Confirmed Last Taken amlodipine 5 mg PO QAM 12/13/18 04/01/21 02/09/19 06:00 atenolol 25 mg PO 12/13/18 04/01/21 02/08/19 23:00 atorvastatin 20 mg PO HS 12/13/18 04/01/21 02/08/19 23:00 cetirizine [Zyrtec] 10 mg PO 12/13/18 04/01/21 02/08/19 23:00 cholecalciferol (vitamin D3) 1,000 unit PO QAM 12/13/18 04/01/21 02/08/19 08:30 [Vitamin D3] coenzyme Q10 50 mg PO QA 12/13/18 04/01/21 01/30/19 esomeprazole magnesium [Nexium] 40 mg PO QAM 12/13/18 04/01/21 02/09/19 06:00 hydroxychloroquine [Plaquenil] 400 mg PO QPM 12/13/18 04/01/21 02/08/19 20:00 lactase [Lactaid] 3,000 unit PO DAILY PRN 12/13/18 04/01/21 02/07/19 montelukast 10 mg PO HS 12/13/18 04/01/21 02/08/19 23:00 telmisartan [Micardis] 80 mg PO QAM 12/13/18 04/01/21 02/08/19 11:00 PreserVision AREDS-2 1 tab PO QAM 01/13/19 04/01/21 01/30/19 [employer] Gi Enzymes Otc 1 tab PO HS 04/01/21 04/01/21 Unknown acetaminophen [Tylenol Extra 500 mg PO BID 04/01/21 04/01/21 Unknown Strength] [id number] 1 spray INTRANASAL QAM 04/01/21 04/01/21 Unknown meloxicam 7.5 mg PO DAILY PRN 04/01/21 04/01/21 Unknown Past Medical History Medical History Anemia Chronic Cancer Bladder, right breast s/p right mastectomy (no chemo or radiation) GERD (gastroesophageal reflux disease) controlled Heart palpitations Episode 02/2021- Cardiology appt (Dr. 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): Grade 3 view, MAC 3, ETT 7.0 + PNB at [facility] History of bilateral tubal ligation History of biopsy of bladder TUBRT (2010) r/t cancer History of bowel resection R/t diverticulitis History of cataract extraction with lens replacement History of colonoscopy History of cystoscopy History of esophagogastroduodenoscopy (EGD) History of hysterectomy MATT BSO History of mastectomy Right breast (2009) History of open reduction and internal fixation (ORIF) procedure Right ankle History of tonsillectomy History of total knee replacement Left knee Hx of bladder repair surgery Past Anesthesia History No Hx of Anesthesia Complications and No Family Hx of Anesthesia Complications History of PONV No Hx of PONV and No Hx of Motion Sickness Social History Smoking Status: Former smoker Do You Dip or Chew Tobacco: No Smoking End Date: Quit 1971 Hx Alcohol Use: Yes Alcohol type: wine alcohol intake frequency: holidays/special occasions only Hx Substance Use: No substance use type: does not use Review of Systems Patient denies chest pain, shortness of breath, dyspnea on exertion, fever, chills, cough, wheezing, palpitations. Physical Exam Vital Signs VITALS BP 179/90 > Pt reports white coat htn, has preop cardiac evaluation prior to surgery* P 75 TEMP WNL SP02 100%RA RESP 18 PHYSICAL Full cervical extension range of motion. Full TMJ range of motion. TMD 3.5 finger breaths Mallampati Score 3 Dentition: intact, + caps Lungs: clear throughout to auscultation Cardiac: regular rate and rhythm, I-II/ systolic murmur Spine: normal Carotid arteries: negative bruit Extremities: no edema Lab Results Anesthesia Preop Results Results Anesthesia Widget: PT 9.9 Seconds (9.0-12.0) 04/03/21 PTT 27.1 Seconds (21.0-31.0) 04/03/21 INR 1.0 (0.9-1.1) 04/03/21 HA1c 5.8 % (4.5-5.6) H 04/03/21 Blood Type A Positive 04/03/21 Antibody Screen NEGATIVE 04/03/21 Testing Laboratory Results 02/27/21 WBC 8.87 H/H 13.2/40.5 PLATELETS 288 SODIUM 140 POTASSIUM 3.5 CHLORIDE 102 CO2 27 BUN 14 CREATININE 0.6 GLUCOSE 150 UA negative Electrocardiogram Date: 02/27/21 SR with first degree AVB at 96bpm. Possible LAE. Septal infarct, age undetermined. No significant change compared to 07/18/2010 per regulatory assistant review. Chest X-Ray Date: 04/03/21 FINDINGS: The lungs are clear. Cardiac silhouette is normal in size. No pleural effusions. No pneumothorax. There is a right shoulder prosthesis. Mild degenerative changes within the thoracic spine. No fractures. IMPRESSION: No acute process.
--- NOTE | 2021-04-29 15:45 | History & Physical Report ---
Date of Service April 29, 2021 Assessment & Plan (1) Rheumatoid arthritis: Plan: Treatment options discussed with patient. She has significaint degenerative changes to left shoulder. She has failed conservative measures. Surgical intervention recommended. Risks, benefits and alternatives to surgery including but not limited to infection, DVT, pain, stiffness, need for revision surgery, damage to blood vessels, damage to nerves, PE, , were discussed with the [facility]ingo wilkerson and they wish to proceed. Plan on left shoulder reverse total shoulder arthroplasty at [facility] on 04/30/21. All questions answered. She will follow up post op. Rheumatoid arthritis location: shoulder Laterality: left History of Present Illness Chief Complaint: Left shoulder pain Primary Care Provider: Lindsay Butler 80yo female with PMHx significant for HTN, high cholesterol, RA, hx of breast and bladder Ca, heart palpitations with ongoing left shoulder pain. Pain intefering with her daily activities. She has failed conservative measrues including injections and anti-inflammatories. She has severe DJD left shoulder. She would like to proceed with replacement. Patient denies headaches, sweats, fevers, chills, double vision, blurred vision, cough, sore throat, dysphagia, chest pain, sob, wheezing, n/v/d/c, numbness, tingling, fatigue, urinary symptoms, mood disorders. ROS positive for left shoulder pain and stiffness. Allergies Allergy/AdvReac Type Severity Reaction Status Date / Time adhesive Allergy Intermediate Rash Verified 04/22/21 10:02 clarithromycin Allergy Intermediate Rash Verified 04/22/21 10:02 morphine Allergy Mild Itchiness Verified 04/22/21 10:02 Biaxin TABS Allergy Uncoded 04/22/21 10:02 Home Medications Medication Instructions Recorded Confirmed Type amlodipine 5 mg tablet 5 mg PO QAM 12/13/18 04/22/21 History atenolol 50 mg tablet 25 mg PO HS 12/13/18 04/22/21 History atorvastatin 20 mg tablet 20 mg PO HS 12/13/18 04/22/21 History cetirizine 10 mg tablet (Zyrtec) 10 mg PO HS 12/13/18 04/22/21 History cholecalciferol (vitamin D3) 25 1,000 unit PO QAM 12/13/18 04/22/21 History mcg (1,000 unit) capsule (Vitamin D3) coenzyme Q10 10 mg capsule 50 mg PO QAM 12/13/18 04/22/21 History esomeprazole magnesium 40 mg 40 mg PO QAM 12/13/18 04/22/21 History capsule,delayed release (Nexium) hydroxychloroquine 200 mg tablet 400 mg PO QPM 12/13/18 04/22/21 History (Plaquenil) lactase 3,000 unit tablet (Lactaid) 3,000 unit PO DAILY PRN 12/13/18 04/22/21 History montelukast 10 mg tablet 10 mg PO HS 12/13/18 04/22/21 History telmisartan 80 mg tablet (Micardis) 80 mg PO QAM 12/13/18 04/22/21 History vit C 250 mg-vit E 90 mg-zinc 40 1 tab PO QAM 01/13/19 04/22/21 History mg-copper 1 [id number]-dicirh capsule (PreserVision AREDS-2) [employer] Enzymes Otc 1 tab PO HS 04/01/21 04/22/21 History acetaminophen 500 mg capsule 500 mg PO BID 04/01/21 04/22/21 History azelastine 137 mcg-fluticasone 50 1 spray INTRANASAL QAM 04/01/21 04/22/21 History mcg spray,susp-NaCl 0.9% spray nasal meloxicam 7.5 mg tablet 7.5 mg PO DAILY PRN 04/01/21 04/22/21 History Past Med/Surg History Medical History Anemia Chronic Cancer Bladder, right breast s/p right mastectomy (no chemo or radiation) GERD (gastroesophageal reflux disease) controlled Heart palpitations Episode 02/2021- Cardiology appt (Dr. 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): Grade 3 view, MAC 3, ETT 7.0 + PNB at [facility] History of bilateral tubal ligation History of biopsy of bladder TUBRT (2010) r/t cancer History of bowel resection R/t diverticulitis History of cataract extraction with lens replacement History of colonoscopy History of cystoscopy History of esophagogastroduodenoscopy (EGD) History of hysterectomy MATT BSO History of mastectomy Right breast (2009) History of open reduction and internal fixation (ORIF) procedure Right ankle History of tonsillectomy History of total knee replacement Left knee Hx of bladder repair surgery Family History Sister Family history of diabetes mellitus Grandfather Family history of diabetes mellitus Social History (Updated 04/01/21 @ 16:16 by Lindsay Dow RN) Smoking Status: Former smoker Second Hand Exposure: Yes (PARENTS SMOKED); Hx Alcohol Use: Yes Alcohol type: wine Hx Substance Use: No Preferred Language: Algerian Communication Ability: Effective Biology Department Chair Required: No Beliefs That Will Affect Care: None marital status: Current Living Situation: Spouse current occupational status: retired Feels Safe at Home: Yes Assistive Devices: Glasses Review of Systems All systems reviewed & are unremarkable except as noted in HPI & below Physical Exam Constitutional: well developed and well nourished; no acute distress Eyes: PERRL, conjunctivae normal, anicteric sclerae ENMT: external ear and nose normal, oropharynx normal Neck: trachea midline, no thyromegaly Respiratory: normal respiratory effort, lungs clear to auscultation Cardiovascular: RRR, no edema, + II/ systolic murmur Musculoskeletal: Left shoulder: Positive impingement signs. Active and passive painful ROM. Tenderness diffusely with max tenderness anterior glenoid. FF to 60 degrees actively, abduction to 80 degrees actively, ER to 90. Strength is equal bilaterally Skin: no rashes, warm and dry Neurologic: patellar DTR's 2+ bilat, sensation intact Psychiatric: A+Ox3, euthymic affect Results & Data ([facility]) Diagnostic Findings X-rays of her left shoulder demonstrate rheumatoid arthritis with large cysts eroding the periarticular areas of the proximal humerus. The cysts are compromising rotator cuff attachment. She is bone on bone in the glenohumeral joint with central type A wear pattern. This is noted on axillary view. The e rosions are more significant than a year ago. There is osteopenia. Four-view left shoulder.
[~2021-04-30 12:01] MED LIST changes: +BUPIVACAINE 0.5 % 5 MG/1 ML PF 10ML VIAL ONE; -CEFAZOLIN 1000MG 1,000 MG/7.5 ML SYR IV SCH; -DEXAMETHASONE SOD INJ 4 MG/ML VIAL ONE; +GABAPENTIN 300 MG CAP PO SCH; -GABAPENTIN 300 MG PO SCH; -GLYCOPYRROLATE 0.2 MG/ML VIAL ONE; -LARYING-O-JET KIT (LTA) ONE; -LIDOCAINE HCL 2% 2 ML VIAL/AMP(20MG/ML) INFIL ONE; -MIDAZOLAM HCL 1 MG/ML 2ML VIAL ONE; -NEOSTIGMINE METHYLSULFATE 5 MG/5 ML SYR ONE; -ONDANSETRON INJ 2 MG/ML 2 ML VIAL ONE; -PHENYLEPHRINE 100MCG/ML 5ML SYR ONE; -PROPOFOL IV EMULSION 10 MG/ML 20 ML VIAL IV ONE; -ROCURONIUM BROMIDE 10 MG/ML 5 ML VIAL ONE; -ROPIVACAINE 0.5% 5 MG/ML 30 ML VIAL ONE; +TRANEXAMIC ACID 1,000 MG **IV Intra-op IV SCH; +TRANEXAMIC ACID 1,000 MG **IV Pre-op IV SCH; +ceFAZolin 1000MG 1,000 MG/7.5 ML SYR IV SCH; -ePHEDrine sulfate 50 MG/ML SYR ONE; -fentaNYL citrate 100 MCG/2 ML VIAL ONE
[2021-04-30] MEDS ORDERED: fentaNYL citrate 100 MCG/2 ML VIAL ONE (13:58)
[2021-04-30] MEDS ORDERED: MIDAZOLAM HCL 1 MG/ML 2ML VIAL ONE (13:58)
[2021-04-30] MEDS ORDERED: PROPOFOL IV EMULSION 10 MG/ML 20 ML VIAL IV ONE (14:00)
[2021-04-30] MEDS ORDERED: ROCURONIUM BROMIDE 10 MG/ML 5 ML VIAL IV ONE (14:00)
[2021-04-30] MEDS ORDERED: LIDOCAINE 2% 2 ML VIAL/AMP(20MG/ML) INFIL ONE (14:00)
[2021-04-30] MEDS ORDERED: ePHEDrine sulfate 50 MG/ML AMP IV PRN (14:15)
[2021-04-30] MEDS ORDERED: fentaNYL citrate 100 MCG/2 ML VIAL IV PRN (14:15)
[2021-04-30] MEDS ORDERED: ONDANSETRON INJ 2 MG/ML 2 ML VIAL IV PRN ×2 (14:15→19:40)
[2021-04-30] MEDS ORDERED: ATROPINE SULFATE 0.1 MG/ML 10ML SYR IV PRN (14:15)
--- NOTE | 2021-04-30 15:02 | History & Physical Bridge Note ---
Date of Service April 30, 2021 History & Physical Bridge Note I have examined the patient, reviewed the History & Physical and in the interval since the performance of the History & Physical I have noted the following changes of clinical significance: no changes noted
[2021-04-30] MEDS ORDERED: DEXAMETHASONE SOD INJ 4 MG/ML VIAL ONE (17:04)
[2021-04-30] MEDS ORDERED: ePHEDrine sulfate 50 MG/ML SYR ONE (17:04)
[2021-04-30] MEDS ORDERED: ONDANSETRON INJ 2 MG/ML 2 ML VIAL ONE (17:04)
[2021-04-30] MEDS ORDERED: PHENYLEPHRINE 100MCG/ML 5ML SYR ONE (17:04)
--- NOTE | 2021-04-30 18:25 | Operative Report ---
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 large periarticular erosions secondary to rheumatoid arthritis Post-Op Diagnosis: Left Shoulder Rheumatoid Arthritis, large glenoid bone cyst and large periarticular bone cyst secondary to rheumatoid arthritis, rotator Cuff tendinopathy, Biceps Tendinopathy I identified the patient and participated in the time-out.: Yes Procedure Operation Date: 04/30/21 13:40 Actual Procedures p Left Reverse Total Shoulder Arthroplasty, Biceps Tenodesis, debridement and bone grafting glenoid Bone Cyst with humeral head cancellous bone autograft(Left ) - Hemant Perez MD Surgeon Hemant Perez MD Moose Hunter Dung RENAE Estimated Blood Loss 30 Findings Consistent with Post-Op Diagnosis Specimens Humeral head remnant and synovium glenohumeral joint Drains 2 Hemovac Anesthesia Type General Regional Complications none Disposition Disposition: Recovery Room Indications 80-year-old female with chronic left shoulder weakness pain history of rheumatoid arthritis. Patient had similar problem on her right shoulder and she underwent a reverse total shoulder replacement had excellent outcome and continues to be pain-free there. Left shoulder has [id number] glenohumeral joint and intact rotator cuff but large periarticular cyst compromising the rotator cuff attachment with rotator cuff tendinopathy and a large subchondral cyst of the glenoid. Description of Procedure The patient was taken to the operating room and anesthetized under regional block and general anesthetic. The patient was positioned on the operating table in a 30 beach chair position with a towel roll under the medial border of the left scapula. The arm was draped free to be able to manipulate the shoulder as needed. The left upper extremity was prepped and draped in usual sterile fashion. Exam demonstrated reasonably good range of motion with 160 degrees forward flexion 90 degrees abduction and 70 degrees external rotation. Clearly [id number] crepitation with all movements An anterior deltopectoral approach was performed. A longitudinal incision was made in the deltopectoral interval. The skin was incised sharply. Subcutaneous flaps were elevated off the fascia. The cephalic vein was dissected out and retracted lateral with the deltoid. The clavipectoral fascia was divided at the lateral margin of the conjoined tendon and extended up to the CA ligament. The following findings were noted: The subscapularis and supraspinatus tendons were intact and there was inflamed tissue coming out of the rotator interval con sistent with rheumatoid synovium. There was relatively thin rotator cuff but intact rotator cuff tissue. The upper centimeter of the pectoralis was released for inferior exposure. The biceps tendon findings demonstrated there was chronic biceps tenosynovitis and thinning of the biceps tendon with chronic tendinopathy.. the biceps tendon was tenodesed to the pectoralis tendon with #2 FiberWire. The proximal biceps was resected. The subscapularis tendon was taken down off the lesser tuberosity using a subperiosteal dissection. A #1 Vicryl traction suture was placed into the free end of the subscapularis tendon and capsule. The subscapular muscle fibers were split longitudinally at the level of the circumflex vessels. The circumflex vessels were identified and tied off with silk ties and divided laterally. A Kitner elevator was used to free up the inferior fibers of the subscapularis off of the capsule. The axillary nerve was identified with a tug test and protected with a blunt Consuelo retractor between the nerve and the capsule. The subscapularis tendon was then taken down off of the lesser tuberosity subperiosteally and subperiosteal dissection was performed along the neck of the humerus as the arm is gradually actually rotated exposing the humeral head. The humeral head was completely eburnated bone and void of any articular surface but no deformity other than the large periarticular cysts anteriorly and posteriorly and some superiorly. There were no osteophytes. During the takedown there was a large cyst just medial to the lesser tuberosity eroding into the humeral head consistent with rheumatoid arthritis. There was rheumatoid synovial tissue within the cyst. On the undersurface of the subscapularis tendon there was abundant thickened synovial tissue consistent with rheumatoid arthritis and a large cystic collection in the rotator interval which was resected. To help achieve exposure the intact supraspinatus tendon was released leaving the infraspinatus intact. A Mullen elevator was used to assist in releasing the capsule of the neck of the humerus. The capsule was divided with Esparza scissors down to the glenoid released off the anterior glenoid and the rotator interval was released to meet the capsular release and a 360 release of the subscapularis was accomplished. A Fukuda retractor was placed into the joint retracting the humeral head posterior. Glenoid findings demonstrated completely eburnated bone with no articular surface remaining and a small degenerative labrum. The labrum and biceps tendon was resected. an anterior-inferior and posterior inferior capsular release were performed with electrocautery and a Mullen elevator on bone with the axillary nerve protected inferiorly by the retractor. Attention was then taken to the humeral preparation. The cutting guide was placed into the humeral head. It was positioned at 20 of retroversion. Oscillating saw was used to resect the humeral head giving the cut above the level of the posterior rotator cuff insertion site. The humerus was then prepared for the stem. I used the ascend flex stem from [employer]. The sizing broaches were used followed by trial broaches up to a size 3B long which had the appropriate fit and fill. The appropriate sized cut protector was placed. The humerus was then retracted posterior to the glenoid. The glenoid was sized for a 25 mm full wedge 15 degree baseplate based on CT scan preoperative templating. The guide for the full wedge 15 degree baseplate was positioned and actually had a very good fit so it was felt that very little reaming was required. The guidepin was placed through the full wedge guide bicortical fixation. The reamer for the 25 mm 15 degree full wedge baseplate was used. The reamer for the central boss was used. The guidepin was removed.the cyst was accessed through the inferior central boss reaming which penetrated the upper aspect of the cyst. I used an angled curette to curette out the cyst thoroughly. This was irrigated and the humeral head cut cancellous bone was morselized with a rongeur and then this was impacted into the cyst. The guide for this central screw was placed in the drill was drilled through the medial cortex measured for a 30 mm screw. The performed 25 mm full wedge 15 degree bone ingrowth baseplate with a 30 mm central screw 6.5 mm with screw was screwed into position. The base plate was transfixed with superior superior compression screw and anterior posterior and inferior locking screw fixation with stable fixation. The fan reamer was used for the 39 millimeter glenoid sphere. After irrigation the Tornier 39 standard glenoid sphere was impacted onto the baseplate and the security screw was tightened. Attention was taken back to the humerus. The cut protector was removed and the +0 low offset humeral tray trial was assembled to the trial stem rotated appropriately to get bony coverage and then screwed in position. A trial reduction was performed. A 39+6 reversed trial insert demonstrated good stability and no shuck. The trials were removed. 3 drill holes are made into the harder bone in the bicipital groove area and 3 #5 FiberWire sutures were placed transosseously. The canal was irrigated with antibiotic solution with bacitracin. The final component was assembled. The final component was 3B long PTC ascend flex stem assembled to the +0 low offset tray with a 39+6 reversed insert. This was then impacted into the humerus with a tight press-fit. It was reduced to the glenoid sphere. Stability was verified. Subscapularis was repaired with the #5 FiberWire sutures using Jamal-Kishan suture technique. Lateral row soft tissue repair was performed with #2 FiberWire [id number] sutures. The end of the supraspinatus was repaired to the intact infraspinatus and 1 transosseous suture through the bone of the greater tuberosity suturing this in a more posterior relaxed position. The pectoralis was repaired with #2 FiberWire [id number] sutures reinforcing the biceps tendon tenodesis. The arm was taken through a range of motion which demonstrated 110 degrees forward flexion 100 degrees abduction and 45 degrees external rotation without any tension on repair. The implant was stable through the range of motion tested. The wound was copiously irrigated. 2 Hemovac drains were placed. The deltopectoral interval was closed with [id number] #1 Vicryl sutures. The subcutaneous tissues were closed with 2-0 Vicryl sutures. The skin was closed with romaine. Sterile dressings were applied and a shoulder immobilizer. Dung RENAE my physician quality assistant assisted in the procedure to the entire procedure including patient positioning arm positioning prepping and draping soft tissue retraction instrument management suture management and performed the subcutaneous and skin closure and will participate in the postoperative care of the patient. I attest to the content of the Intraoperative Record and any orders documented therein. Any exceptions are noted below.
--- NOTE | 2021-04-30 18:54 | Anesthesiology Progress Note ---
Date of Service April 30, 2021 Anesthesia Post Procedure Vital Signs Vital Signs: Temp Pulse Pulse Resp BP Pulse Ox 04/30/21 18:50 72 16 139/72 95 04/30/21 18:40 69 15 143/65 H 95 04/30/21 18:30 79 19 155/63 H 99 04/30/21 18:22 36.6 C 71 22 162/70 H 97 04/30/21 12:38 36.8 C 67 16 188/78 H 99 Transfer of Care Handoff Completed per policy Notes Mental Status: alert / awake / arousable and participated in evaluation Patient Amnestic to Procedure: Yes Nausea / Vomiting: adequately controlled Pain: adequately controlled Airway Patency, RR, SpO2: stable & adequate BP & HR: stable & adequate Hydration State: stable & adequate Anesthetic Complications: no major complications apparent and Pt Satisfied with anesthetic care
[2021-04-30] MEDS ORDERED: HYDROmorphone INJ 0.5 MG/0.5 ML SYR IV PRN (19:40)
[2021-04-30] MEDS ORDERED: LACTASE 3000 UNIT TAB PO PRN (19:40)
[2021-04-30] MEDS ORDERED: oxyCODONE HCL IR 5 MG TAB (IMMEDIATE RELEASE) PO PRN (19:40)
[2021-04-30] MEDS ORDERED: bisacodyL 10 MG SUPP PR PRN (19:40)
[2021-04-30] MEDS ORDERED: NALOXONE HCL 0.4 MG/1 ML VIAL/CARP IV PRN (19:40)
[2021-04-30] MEDS ORDERED: MAGNESIUM HYDROXIDE SUSP 30 ML UDC PO PRN (19:40)
[2021-04-30] MEDS ORDERED: METOCLOPRAMIDE HCL INJ 5 MG/ML 2 ML VIAL IV PRN (19:40)
[2021-04-30] MEDS: SODIUM CHLORIDE 0.9% 1000ML 1,000 ML IV SCH (20:46)
[2021-04-30] MEDS ORDERED: ATORVASTATIN 20 MG TAB PO SCH (21:00)
[2021-04-30] MEDS ORDERED: MONTELUKAST SODIUM 10 MG TABLET PO SCH (21:00)
[2021-04-30] MEDS ORDERED: ATENOLOL 25 MG TABLET PO SCH (21:00)
[2021-04-30] MEDS ORDERED: [UNRECOGNIZED DRUG - OTHER] PO SCH (21:00)
[2021-04-30] MEDS ORDERED: CETIRIZINE HCL 10 MG TABLET PO SCH (21:00)
[2021-04-30] MEDS ORDERED: SENNA 8.6 MG TAB PO SCH (21:00)
[2021-04-30] MEDS: DOCUSATE SODIUM 100 MG CAP PO SCH (21:23)
--- NOTE | 2021-04-30 21:23 | XRay Report ---
XR shoulder LT min 2V routine CLINICAL HISTORY: Post shoulder surgery COMPARISON: None. DISCUSSION: Prosthetic left shoulder shoulder joint is seen. Subcutaneous emphysema, surgical drainage and skin s taples are seen. Small left pleural effusion with atelectasis/infiltrate at the left base is seen. IMPRESSION: Postoperative changes as detailed above. Small left pleural effusion associated with atelectasis/infiltrate. ACT 112: Negative or not required by law. The above report was generated using voice recognition software. It may contain grammatical, syntax o r spelling errors. Electronically signed by: Rima Purdy DO 04/30/2021 9:22 PM
[2021-04-30] MEDS: ACETAMINOPHEN 500 MG TAB PO SCH (21:25)
[2021-04-30] MEDS ORDERED: COUGH DROP (SUGAR FREE) LOZ 24 LOZ/1 BOX BUCCAL ONE (21:35)
--- NOTE | 2021-04-30 23:01 | Hospitalist Consultation ---
Date of Consultation April 30, 2021 Assessment & Plan (1) H/O shoulder surgery: Final Assessment and Recommendations as follows : Status post left shoulder surgery hx rheumatoid arthritis Clinically well hypertension, stable breast cancer right status post surgery bladder cancer status post surgery Prediabetes, hemoglobin A1c of 5.10 April 2021 past tobacco abuse Continue home BP meds DVT prophylaxis SCDs as per postop orthopedic orders Recommend pharmacologic anticoagulation once bleeding risk is deemed to be minimal and negligible pending Orthopedics postop evaluation. Thank very much for this consultation. Dr. España will follow patient's progress. Text document was generated using [employer] voice recognition software. It may contain grammatical or spelling errors. Kindly contact undersigned for clarification of any documentation item in question. History of Present Illness Reason for Consultation: Medical management Requesting Physician: Dr. Perez Attending Physician: Hemant Perez MD History of Present Illness PCP : MG Wooten History obtained from patient and records. Medical history significant for hypertension, breast cancer right status post surgery, bladder cancer status post surgery, past tobacco abuse, rheumatoid arthritis, prediabetes. Patient underwent elective left shoulder surgery for degenerative rheumatoid arthritis today. Patient denies chest pain, S OB. Postop pain tolerable. Medical History as above Surgical History : Appendectomy, hysterectomy, right mastectomy, laparoscopy, knee surgeries, shoulder surgeries, tonsillectomy, urologic procedures Family History : Lung cancer, heart disease Personal/Social history : Past tobacco use, occasional EtOH intake, retired hospital social director Allergies Allergy/AdvReac Type Severity Reaction Status Date / Time adhesive Allergy Intermediate Rash Verified 04/30/21 12:27 clarithromycin Allergy Intermediate Rash Verified 04/30/21 12:27 morphine Allergy Mild Itchiness Verified 04/30/21 12:27 Home Medications Medication Instructions Recorded Confirmed Type amlodipine 5 mg tablet 5 mg PO QAM 12/13/18 04/30/21 History atenolol 50 mg tablet 25 mg PO HS 12/13/18 04/30/21 History atorvastatin 20 mg tablet 20 mg PO HS 12/13/18 04/30/21 History cetirizine 10 mg tablet (Zyrtec) 10 mg PO HS 12/13/18 04/30/21 History cholecalciferol (vitamin D3) 25 1,000 unit PO QAM 12/13/18 04/30/21 History mcg (1,000 unit) capsule (Vitamin D3) coenzyme Q10 10 mg capsule 50 mg PO QAM 12/13/18 04/30/21 History esomeprazole magnesium 40 mg 40 mg PO QAM 12/13/18 04/30/21 History capsule,delayed release (Nexium) hydroxychloroquine 200 mg tablet 400 mg PO QPM 12/13/18 04/30/21 History (Plaquenil) lactase 3,000 unit tablet (Lactaid) 3,000 unit PO DAILY PRN 12/13/18 04/30/21 History montelukast 10 mg tablet 10 mg PO HS 12/13/18 04/30/21 History telmisartan 80 mg tablet (Micardis) 80 mg PO QAM 12/13/18 04/30/21 History vit C 250 mg-vit E 90 mg-zinc 40 1 tab PO QAM 01/13/19 04/30/21 History mg-copper 1 bv-zertpu-jxqwri capsule (PreserVision AREDS-2) [employer] Enzymes Otc 1 tab PO HS 04/01/21 04/30/21 History azelastine 137 mcg-fluticasone 50 1 spray INTRANASAL QAM 04/01/21 04/30/21 Hist ory mcg spray,susp-NaCl 0.9% spray nasal acetaminophen 500 mg tablet 1,000 mg PO Q8 #60 tab 05/01/21 Rx (Tylenol Extra Strength) aspirin 81 mg tablet,delayed 81 mg PO QAM #30 tab 05/01/21 Rx release hydromorphone 2 mg tablet 2 mg PO .Q4h-6h PRN #18 tab MDD 6 05/01/21 Rx (Dilaudid) Patient History Medical History Anemia Chronic Cancer Bladder, right breast s/p right mastectomy (no chemo or radiation) GERD (gastroesophageal reflux disease) controlled Heart palpitations Episode 02/2021- Cardiology appt (Dr. Alvarez; [facility]) 04/16/21 History of diverticulitis s/p bowel resection (2014) Hyperlipidemia Hypertension Osteoarthritis Rheumatoid arthritis Shoulders Surgical History History of appendectomy History of arthroplasty of right shoulder Right reverse total shoulder arthroplasty (02/09/2019): Grade 3 view, MAC 3, ETT 7.0 + PNB at [facility] History of bilateral tubal ligation History of biopsy of bladder TUBRT (2010) r/t cancer History of bowel resection R/t diverticulitis History of cataract extraction with lens replacement History of colonoscopy History of cystoscopy History of esophagogastroduodenoscopy (EGD) History of hysterectomy MATT BSO History of mastectomy Right breast (2009) History of open reduction and internal fixation (ORIF) procedure Right ankle History of tonsillectomy History of total knee replacement Left knee Hx of bladder repair surgery Family History Sister Family history of diabetes mellitus Grandfather Family history of diabetes mellitus Social History (Updated 04/01/21 @ 16:16 by Lindsay Dow RN) Smoking Status: Former smoker Smoking End Date: Quit 1971; Second Hand Exposure: Yes (PARENTS SMOKED); Do You Dip or Chew Tobacco: No; Hx Alcohol Use: Yes Alcohol type: wine Hx Substance Use: No Preferred Language: Slovak Communication Ability: Effective Elevator Service Technician Required: No Beliefs That Will Affect Care: None marital status: Current Living Situation: Spouse current occupational status: retired Other Information That Helps Us Care for You: No Feels Safe at Home: Yes Safety Concerns: Feels Safe At This Time Assistive Devices: None Assistive Devices Comment: CAPS WHOLE MOUTH Review of Systems Review of Systems: As per HPI, all 10 systems reviewed, all other ROS negative Physical Exam Physical Exam: GENERAL: Comfortable, pleasant, no respiratory distress SKIN: Pallor, warm HEENT: Pale palpebral conjunctivae, no ptosis, dry buccal mucosa NECK : Supple, short neck, no tenderness CHEST : CTA, no tenderness HEART : RRR, systolic murmur best heard over left sternal border ABDOMEN: Some distention, nontender EXTREMITIES : Minimal LE swelling, no LE tenderness, LUE sling NEUROLOGIC : Coherent, no facial asymmetry, no other gross focality Results & Data Results & Data ([facility]) Vital Signs (Past 12 Hours) Vital Signs Temp Pulse Pulse Pulse Resp BP Pulse Ox 04/30/21 22:25 36.5 C 78 16 128/66 93 04/30/21 21:22 36.4 C L 80 16 117/67 93 04/30/21 20:25 36.4 C L 86 16 125/67 95 04/30/21 19:55 36.4 C L 79 16 132/69 96 04/30/21 19:10 77 13 140/62 94 04/30/21 19:00 36.4 C L 71 14 140/64 95 04/30/21 18:50 72 16 139/72 95 04/30/21 18:40 69 15 143/65 H 95 04/30/21 18:30 79 19 155/63 H 99 04/30/21 18:22 36.6 C 71 22 162/70 H 97 04/30/21 12:38 36.8 C 67 16 188/78 H 99
[2021-05-01] MEDS: ceFAZolin 1000MG 1,000 MG/7.5 ML SYR IV SCH ×2 (00:58→08:58)
[2021-05-01 02:56] VITALS: TEMP 97.9
[2021-05-01] MEDS: ACETAMINOPHEN 500 MG TAB PO SCH (06:08)
[2021-05-01] MEDS: SODIUM CHLORIDE 0.9% 1000ML 1,000 ML IV SCH (06:19)
[2021-05-01 06:42] LABS: Basophils # (auto) 0.01 K/uL (0-0.2); Basophils % (auto) 0.1 %; Hematocrit (blood only) 33.9 % (37-47); Hemoglobin 11.1 g/dL (12.0-16.0); Immature Granulocytes # (auto) 0.03 K/uL (0.00-0.02); Immature Granulocytes % (auto) 0.3 %; Lymphocytes # (auto) 0.89 K/uL (1.2-3.4); Lymphocytes % (auto) 8.6 %; Mean Corpuscular Hemoglobin 29.8 pg (25-34); Mean Corpuscular Hgb Conc 32.7 g/dL (32-36); Mean Corpuscular Volume 90.9 fL (80-100); Mean Platelet Volume 10.9 fL (7.4-10.4); Monocytes # (auto) 0.59 K/uL (0.11-0.59); Monocytes % (auto) 5.7 %; Neutrophils # (auto) 8.85 K/uL (1.4-6.5); Neutrophils % (auto) 85.3 %; Platelet Count 291 K/uL (130-400); RDW Standard Deviation 43.3 fL (36.4-46.3); Red Blood Count 3.73 M/uL (4.2-5.4); White Blood Count 10.37 K/uL (4.8-10.8)
[2021-05-01 07:16] LABS: BUN Creatinine Ratio 17.5 (10-20); Calcium 8.7 mg/dl (8.5-10.1); Creatinine Clr Calc Pharmacy 30.7 ml/min; Est GFR (African American) 96.2 ml/min; Potassium 3.8 mmol/L (3.5-5.1)
[2021-05-01 07:43] VITALS: BP 158/66; PULSE 78; O2SAT 96
[2021-05-01] MEDS: DOCUSATE SODIUM 100 MG CAP PO SCH (08:58)
[2021-05-01] MEDS ORDERED: TELMISARTAN 40 MG TAB PO SCH (09:00)
[2021-05-01] MEDS ORDERED: ASPIRIN 81 MG ECTAB PO SCH (09:00)
[2021-05-01] MEDS ORDERED: MULTIVITAMIN TAB PO SCH (09:00)
[2021-05-01] MEDS ORDERED: CHOLECALCIFEROL 1,000 UNITS 25 MCG TAB PO SCH (09:00)
[2021-05-01] MEDS ORDERED: PANTOprazole 40 MG TAB PO SCH (09:00)
[2021-05-01] MEDS ORDERED: amLODIPine BESYLATE 5 MG TAB PO SCH (09:00)
[2021-05-01] MEDS ORDERED: NON-FORMULARY MEDICATION (Vit C,E-Zn-Coppr-Lutein-Zeaxan [Preservision Areds-2] 250-200-40 PO SCH (09:00)
--- NOTE | 2021-05-01 09:44 | Orthopedic Progress Note ---
Date of Service May 01, 2021 Assessment & Plan (1) S/p reverse total shoulder arthroplasty: Plan: POD#1 left Reverse TSA -PT/OT-no shoulder motion. May do elbow/wrist/hand, shrugs, pendulums -Pain management-concerned about pain once block wears off. Will send oral hydromorphone for her as needed -DVT prophylaxis-SCDs, ASA 81mg daily -AM labs-hemoglobin 11.1 from 13.2 preop. -D/C planning-plan on discharge home today Admission and Anticipated Discharge Date Admission Date: April 30, 2021 Subjective Patient is POD#1 left reverse TSA. Doing well. Minimal pain. No other complaints. Denies chest pain, sob, dizziness, n/v/d, fever, chills Review of Systems Review of Systems: All systems reviewed & are unremarkable except as noted in Subjective Physical Exam Physical Exam: Dressing is c/d/i, sling in place. 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 Some numbness still residual from nerve block. N/v status and sensation intact Constitutional: well developed and well nourished; no acute distress Results & Data ([facility]) Vital Signs (Past 12 Hours) Vital Signs Temp Pulse Resp BP Pulse Ox 05/01/21 07:42 36.6 C 78 16 158/66 H 96 05/01/21 02:56 36.6 C 66 16 136/69 92 04/30/21 22:25 36.5 C 78 16 128/66 93
[2021-05-01] MEDS ORDERED: HYDROXYCHLOROQUINE SULFATE 200 MG TAB PO SCH (21:00)
--- NOTE | 2021-05-03 21:55 | Discharge Summary ---
Date of Service May 03, 2021 Admission HPI Per Admitting Provider 80yo female with PMHx significant for HTN, high cholesterol, RA, hx of breast and bladder Ca, heart palpitations with ongoing left shoulder pain. Pain intefering with her daily activities. She has failed conservative measrues including injections and anti-inflammatories. She has severe DJD left shoulder. She would like to proceed with replacement. Patient denies headaches, sweats, fevers, chills, double vision, blurred vision, cough, sore throat, dysphagia, chest pain, sob, wheezing, n/v/d/c, numbness, tingling, fatigue, urinary symptoms, mood disorders. ROS positive for left shoulder pain and stiffness. Admission Exam Per Admitting Provider Constitutional: well developed and well nourished; no acute distress Eyes: PERRL, conjunctivae normal, anicteric sclerae ENMT: external ear and nose normal, oropharynx normal Neck: trachea midline, no thyromegaly Respiratory: normal respiratory effort, lungs clear to auscultation Cardiovascular: RRR, no edema, + II/ systolic murmur Musculoskeletal: Left shoulder: Positive impingement signs. Active and passive painful ROM. Tenderness diffusely with max tenderness anterior glenoid. FF to 60 degrees actively, abduction to 80 degrees actively, ER to 90. Strength is equal bilaterally Skin: no rashes, warm and dry Neurologic: patellar DTR's 2+ bilat, sensation intact Psychiatric: A+Ox3, euthymic affect Principal Diagnosis Left shoulder rotator cuff arthropathy Discharge Exam Constitutional well developed and well nourished; no acute distress Eyes PERRL, conjunctivae normal, anicteric sclerae ENMT external ear and nose normal, oropharynx normal Neck trachea midline, no thyromegaly Respiratory normal respiratory effort, lungs clear to auscultation Cardiovascular RRR, no murmur, no edema Skin no rashes, warm and dry Neurologic patellar DTR's 2+ bilat, sensation intact Psychiatric A+Ox3, euthymic affect Discharge Data Allergies Allergy/AdvReac Type Severity Reaction Status Date / Time adhesive Allergy Intermediate Rash Verified 04/30/21 12:27 clarithromycin Allergy Intermediate Rash Verified 04/30/21 12:27 morphine Allergy Mild Itchiness Verified 04/30/21 12:27 Consultations 04/25/21 15:53 Consult Hospitalist Routine Procedures Performed Operation Date: 04/30/21 13:40 Actual Procedures p Left Reverse Total Shoulder Arthroplasty, Biceps Tenodesis, Glenoid Bone Cyst Humreal Head Autograft(Left) - Hemant Perez MD Ordered Studies 04/30/21 05:00 US - OR guided needle placemen Routine Hospital Course (1) S/p reverse total shoulder arthroplasty: Patient presented for same day admission following left reverse total shoulder arthroplasty on 04/30/21. She tolerated procedure well. The Patient had an uneventful hospital course. Post-operatively, her activity was progressed and well tolerated. They participated in PT with ambulation distance of feet. Labs remained stable- lowest hemoglobin recorded: 11.[address] Martinez of medical service was consulted for medical management during admission. Pain controlled on oral medications. Please refer to daily progress notes and PT notes for complete details. After exam on 05/02/21, patient was felt to be stable for discharge home. Patient will f/u in the office in about 2 weeks for further evaluation including x-rays and incision check, sooner if having any issues or concerns. POD#1 left Reverse TSA -PT/OT-no shoulder motion. May do elbow/wrist/hand, shrugs, pendulums -Pain management-concerned about pain once block wears off. Will send oral hydromorphone for her as needed -DVT prophylaxis-SCDs, ASA 81mg daily -AM labs-hemoglobin 11.1 from 13.2 preop. -D/C planning-plan on discharge home today Lab Results 04/30/21 04/30/21 05/01/21 Range/Units 12:22 12:22 05:50 WBC 10.37 (4.8-10.8) K/uL RBC 3.73 L (4.2-5.4) M/uL Hgb 11.1 L (12.0-16.0) g/dL Hct 33.9 L (37-47) % MCV 90.9 (80-100) fL MCH 29.8 (25-34) pg MCHC 32.7 (32-36) g/dL RDW Std Deviation 43.3 (36.4-46.3) fL RDW Coeff of Aminata 13.0 (11.5-14.5) % Plt Count 291 (130-400) K/uL MPV 10.9 H (7.4-10.4) fL Immature Gran % (Auto) 0.3 % Neut % (Auto) 85.3 % Lymph % (Auto) 8.6 % [place] % (Auto) 5.7 % Eos % (Auto) 0.0 % Baso % (Auto) 0.1 % Neut # (Auto) 8.85 H (1.4-6.5) K/uL Lymph # (Auto) 0.89 L (1.2-3.4) K/uL [place] # (Auto) 0.59 (0.11-0.59) K/uL Eos # (Auto) 0.00 (0-0.5) K/uL Baso # (Auto) 0.01 (0-0.2) K/uL Immature Gran # (Auto) 0.03 H (0.00-0.02) K/uL Sodium (136-145) mmol/L Potassium (3.5-5.1) mmol/L Chloride (98-107) mmol/L Carbon Dioxide (21-32) mmol/L Anion Gap (3-11) BUN (7-18) mg/dl Creatinine (0.6-1.2) mg/dl Est Cr Clr Drug Dosing ml/min Est GFR ( Amer) ml/min Est GFR (Non-Af Amer) ml/min BUN/Creatinine Ratio (10-20) Glucose (70-99) mg/dl Calcium (8.5-10.1) mg/dl COVID-19 Eval Order Covid19 [facility]Now [facility] SARS-CoV-2, RNA, NAAT NEGATIVE (NEGATIVE) 05/01/21 Range/Units 05:50 WBC (4.8-10.8) K/uL RBC (4.2-5.4) M/uL Hgb (12.0-16.0) g/dL Hct (37-47) % MCV (80-100) fL MCH (25-34) pg MCHC (32-36) g/dL RDW Std Deviation (36.4-46.3) fL RDW Coeff of Aminata (11.5-14.5) % Plt Count (130-400) K/uL MPV (7.4-10.4) fL Immature Gran % (Auto) % Neut % (Auto) % Lymph % (Auto) % [place] % (Auto) % Eos % (Auto) % Baso % (Auto) % Neut # (Auto) (1.4-6.5) K/uL Lymph # (Auto) (1.2-3.4) K/uL [place] # (Auto) (0.11-0.59) K/uL Eos # (Auto) (0-0.5) K/uL Baso # (Auto) (0-0.2) K/uL Immature Gran # (Auto) (0.00-0.02) K/uL Sodium 139 (136-145) mmol/L Potassium 3.8 (3.5-5.1) mmol/L Chloride 107 (98-107) mmol/L Carbon Dioxide 28 (21-32) mmol/L Anion Gap 4.0 (3-11) BUN 12 (7-18) mg/dl Creatinine 0.70 (0.6-1.2) mg/dl Est Cr Clr Drug Dosing 30.7 ml/min Est GFR ( Amer) 96.2 ml/min Est GFR (Non-Af Amer) 83.0 ml/min BUN/Creatinine Ratio 17.5 (10-20) Glucose 137 H (70-99) mg/dl Calcium 8.7 (8.5-10.1) mg/dl COVID-19 Eval Order SARS-CoV-2, RNA, NAAT (NEGATIVE) Total Time Total Time Spent Total Time Spent (In Minutes): 20 Discharge Plan Discharge Items Patient Disposition: Home - Self-Care Reason For Visit: Left Shoulder Rotator Cuff Arthropathy Discharge Diagnosis: Left shoulder rotator cuff arthropathy Activity: Per Instructions section Non-emergency contact: Surgeon Call non-emergency contact if: you have any medication questions, your pain is not controlled, your pain is unusual for you, you have a fever, your temperature is above 101, your wound has increased redness, your wound has increased drainage and your wound pain has increased Follow-up/Referrals: PCP,NO [Primary Care Provider] - Diet: Regular Addtl Attending Provider Instructions: ACTIVITY RECOMMENDATIONS: SELF CARE INSTRUCTIONS AFTER TOTAL SHOULDER ARTHROPLASTY REVERSE A. You may do daily exercises as taught in physical therapy while in hospital. No lifting with the operative arm. B. You are to wear your sling/immobilizer at all times EXCEPT when performing your daily exercises and for hygiene purposes. C. You may perform dry, daily dressing changes. Please keep your incision covered. You may shower 48 hours after surgery. Do not apply soap or any ointment/lotions directly over incision. Do not soak incision in bath tub/swimming pool. D. You may use ice as needed to operative shoulder. SPECIAL CARE INSTRUCTIONS: VERY IMPORTANT TO READ AND REVIEW A. There are a few signs you need to watch for after you are home. Call [facility] at [phone] if you experience any of the followin. Increased severe shoulder pain. Some pain is expected especially when you exercise. 2. Increased swelling in you shoulder or arm; pain or swelling in either upper extremity. 3. Any fluid drainage from the incision. 4. Shortness of breath or chest pain. B. Please call [facility] at [phone] if you have any questions or concerns about your operation or recovery. C. Call your physician if: 1. Temperature is greater than 101 degrees (F). 2. Pain is not relieved by prescribed pain medications. 3. Increase drainage or redness from incision. 4. Unanswered questions or concerns. FOLLOW UP VISIT: Please call [facility] at [phone] to schedule a follow u p appointment with Dr. Perez or his PA in 12-14 days from your surgery date. Stand-Alone Forms: My [facility], Opioid Pain Management, Smoking Cessation Medications and DC Order Prescriptions: New aspirin 81 mg Tablet,Delayed Release (Dr/Ec) 81 mg PO QAM Qty: 30 RF: 0 acetaminophen [Tylenol Extra Strength] 500 mg Tablet 1,000 mg PO Q8 Qty: 60 RF: 0 hydromorphone [Dilaudid] 2 mg tablet 2 mg PO .Q4h-6h MDD 6 PRN (Reason: pain) Qty: 18 RF: 0 Continued atorvastatin 20 mg Tablet 20 mg PO HS RF: 0 cetirizine [Zyrtec] 10 mg Tablet 10 mg PO HS RF: 0 coenzyme Q10 10 mg Capsule 50 mg PO QAM RF: 0 amlodipine 5 mg Tablet 5 mg PO QAM RF: 0 esomeprazole magnesium [Nexium] 40 mg Capsule,Delayed Release(Dr/Ec) 40 mg PO QAM RF: 0 telmisartan [Micardis] 80 mg Tablet 80 mg PO QAM RF: 0 lactase [Lactaid] 3,000 unit Tablet 3,000 unit PO DAILY PRN (Reason: LACTOSE INTOLERANT) RF: 0 montelukast 10 mg Tablet 10 mg PO HS RF: 0 hydroxychloroquine [Plaquenil] 200 mg Tablet 400 mg PO QPM RF: 0 atenolol 50 mg Tablet 25 mg PO HS RF: 0 cholecalciferol (vitamin D3) [Vitamin D3] 1,000 unit Capsule 1,000 unit PO QAM RF: 0 PreserVision AREDS-2 [id number] oz-iali-qz-mg Capsule 1 tab PO QAM RF: 0 eydqod-mooyuebcvhl-[id number]-NaHCO3 137 mcg-50 mcg- 0.9 % Kit,Emerson Suspension And [employer] 1 spray INTRANASAL QAM RF: 0 [employer] Enzymes Otc 1 tab PO HS RF: 0 Discontinued meloxicam 7.5 mg Tablet 7.5 mg PO DAILY PRN (Reason: Pain) RF: 0 acetaminophen [Tylenol Extra Strength] 500 mg Capsule 500 mg PO BID RF: 0 Discharge Orders: Discharge Order (Routine); Ordered 05/01/21 Ordered By: Ivan Sarabia/Other Patient Handouts: Total Shoulder Replacement Surgery, Shoulder Replace Surg Home Admission Data Admit Date/Time: 04/30/21 18:30 Attending Provider: Hemant Perez Admit Provider: Hemant Perez Primary Care Provider: PCP,NO Other Providers: Madhu España. Other Interventions: Discharge Summary Assessment (RN) Last Done: 05/01/21 11:18
== END 2021-05-01 14:05 | disposition home or self-care (01) | DRG 483 ==
LOC: ASU 12:01 → 3E 18:30